=== PATIENT | female | born 1965 | race Caucasian/White ===

== ENCOUNTER → 2016-08-22 | Outpatient (CLI) | payer OTHER ==
--- NOTE | 2016-08-25 08:49 | MM ---
Reason for exam: screening (asymptomatic). Last mammogram was performed 1 year ago. History: Patient is postmenopausal. Family history of breast cancer in grandmother at age 70 and breast cancer in cousin. Benign excisional biopsy of the right breast, 2012. Physical Findings: A clinical breast exam by your physician is recommended on an annual basis and results should be correlated with mammographic findings. MG Screening Mammo w CAD Bilateral CC and MLO view(s) were taken. XCCM view(s) were taken of the right breast. Prior study comparison: August 22, 2015, bilateral MG screening mammo w CAD. September 29, 2014, bilateral MG screening mammo w CAD. September 28, 2013, bilateral MG screening mammo w CAD. The breast tissue is heterogeneously dense. This may lower the sensitivity of mammography. There is no discrete abnormality. ASSESSMENT: Negative, BI-RAD 1 RECOMMENDATION: Routine screening mammogram of both breasts in 1 year.
== END | disposition home or self-care (01) ==
LOC: RADMAMWWP 08:47
PROVIDERS: ATTEND Family Medicine
DX: Z12.31 Encounter for screening mammogram for malignant neoplasm of breast (principal)

== ENCOUNTER → 2017-07-03 | Outpatient (CLI) | payer OTHER ==
[2017-07-03 10:24] LABS: Basophils # (A) 0.1 k/uL (0-0.2); Basophils % (A) 1 %; Eosinophils # (A) 0.2 k/uL (0-0.7); Eosinophils % (A) 3 %; HCT 46.5 % (34.0-46.0); HGB 15.1 gm/dL (11.4-16.0); Lymphocytes # (A) 1.3 k/uL (1.0-4.8); Lymphocytes % (A) 18 %; MCH 31.2 pg (25.0-35.0); MCHC 32.4 g/dL (31.0-37.0); MCV 96.1 fL (80.0-100.0); Mean Platelet Volume 7.9; Monocytes # (A) 0.3 k/uL (0-1.0); Monocytes % (A) 4 %; Neutrophils # (A) 5.3 k/uL (1.3-7.7); Neutrophils % (A) 73 %; Platelet Count 245 k/uL (150-450); RBC 4.84 m/uL (3.80-5.40); RDW 13.2 % (11.5-15.5); WBC 7.2 k/uL (3.8-10.6)
[2017-07-03 10:41] LABS: ALT 17 U/L (9-52); AST 15 U/L (14-36); Albumin 4.2 g/dL (3.5-5.0); Alkaline Phosphatase 52 U/L (38-126); Anion Gap 10 mmol/L; Blood Urea Nitrogen 21 mg/dL (7-17); Calcium 9.8 mg/dL (8.4-10.2); Carbon Dioxide 28 mmol/L (22-30); Chloride 106 mmol/L (98-107); Cholesterol 186 mg/dL (<200); Glucose 120 mg/dL (74-99); HDL Cholesterol 51 mg/dL (40-60); LDL Cholesterol,Calculated 124 mg/dL (0-99); Potassium 5.1 mmol/L (3.5-5.1); Sodium 144 mmol/L (137-145); Total Bilirubin 0.9 mg/dL (0.2-1.3); Total Protein 6.8 g/dL (6.3-8.2); Triglycerides 57 mg/dL (<150)
== END | disposition home or self-care (01) ==
LOC: LABWHC1 09:44
PROVIDERS: ATTEND Family Medicine
DX: Z00.01 Encounter for general adult medical examination with abnormal findings (principal); K62.5 Hemorrhage of anus and rectum; E11.9 Type 2 diabetes mellitus without complications
CPT/HCPCS: 36415; 80053; 80061; 82306; 83001; 83002; 84443; 85025

== ENCOUNTER → 2017-11-04 | Outpatient (CLI) | payer OTHER ==
[2017-11-04 08:31] LABS: Albumin 4.2 g/dL (3.5-5.0); Bilirubin, Delta 0.2 mg/dL (0.0-0.2); Bilirubin,Unconjugated 0.6 mg/dL (0.0-1.1); Total Bilirubin 0.8 mg/dL (0.2-1.3); Total Protein 6.3 g/dL (6.3-8.2)
--- NOTE | 2017-11-05 11:49 | MM ---
Reason for exam: screening (asymptomatic). Last mammogram was performed 1 year and 2 months ago. History: Patient is postmenopausal. Family history of breast cancer in grandmother at age 70 and breast cancer in cousin. Benign excisional biopsy of the right breast, 2012. Physical Findings: A clinical breast exam by your physician is recommended on an annual basis and results should be correlated with mammographic findings. MG Screening Mammo w CAD Bilateral CC and MLO view(s) were taken. Prior study comparison: August 22, 2016, bilateral MG screening mammo w CAD. August 22, 2015, bilateral MG screening mammo w CAD. The breast tissue is heterogeneously dense. This may lower the sensitivity of mammography. Focal asymmetry right upper outer quadrant anteriorly is more defined but may represent summation shadow. ASSESSMENT: Incomplete: need additional imaging evaluation, BI-RAD 0 RECOMMENDATION: Special view mammogram of the right breast. If lesion persists on supplemental views, image directed ultrasound is recommended. [facility] will attempt to contact patient to return for supplemental views and ultrasound if indicated.
== END | disposition home or self-care (01) ==
LOC: RADMAMWWP 06:57
PROVIDERS: ATTEND Family Medicine
DX: Z12.31 Encounter for screening mammogram for malignant neoplasm of breast (principal)
CPT/HCPCS: 36415; 77067; 80061; 80076

== ENCOUNTER → 2017-11-17 | Outpatient (CLI) | payer OTHER ==
--- NOTE | 2017-11-17 11:48 | MM ---
Reason for exam: additional evaluation requested from abnormal screening. Last mammogram was performed less than 1 month ago. History: Patient is postmenopausal. Family history of breast cancer in grandmother at age 70 and breast cancer in cousin. Benign excisional biopsy of the right breast, 2012. Physical Findings: Nurse did not find any significant physical abnormalities on exam. MG Work Up Mamm w CAD RT Spot compression CC, spot compression MLO, and ML view(s) were taken of the right breast. Prior study comparison: November 04, 2017, bilateral MG screening mammo w CAD. August 22, 2016, bilateral MG screening mammo w CAD. The breast tissue is heterogeneously dense. This may lower the sensitivity of mammography. No suspicious abnormality. Patient notes a 30 pound weight loss. The previously seen focal asymmetry improves on additional views and appears as fibroglandular tissue. These results were verbally communicated with the patient and result sheet given to the patient on 11/17/17. ASSESSMENT: Negative, BI-RAD 1 RECOMMENDATION: Return to routine screening mammogram schedule for both breasts.
== END | disposition home or self-care (01) ==
LOC: RADMAMWWP 08:17
PROVIDERS: ATTEND Family Medicine
DX: R92.8 Other abnormal and inconclusive findings on diagnostic imaging of breast (principal)
CPT/HCPCS: 77065

== ENCOUNTER → 2018-03-12 | Outpatient (CLI) | payer OTHER ==
--- NOTE | 2018-03-12 08:22 | CT ---
EXAMINATION TYPE: CT sinus wo con DATE OF EXAM: 03/12/2018 COMPARISON: 05/21/2015 HISTORY: Atypical facial pain, sinus congestion CT DLP: 558.[address] of the paranasal sinuses was performed in the axial and coronal planes. Bone and soft tissue settings are submitted. The paranasal sinuses demonstrate normal aeration and development. Mucosal thickening of the several left-sided ethmoid air cells. Remaining paranasal sinuses are well- aerated at this time. The osteal meatal units are patent bilaterally. The nasal septum is deviated from left to right. No bony destructive changes are seen within the field of view. IMPRESSION: 1. The ethmoidal chronic sinusitis. 2. Nasal septal deviation.
== END ==
LOC: RADCTMAIN 07:44
PROVIDERS: ATTEND Otolaryngology Plastic Surgery within the Head & Neck
DX: J32.2 Chronic ethmoidal sinusitis (principal); J34.2 Deviated nasal septum
CPT/HCPCS: 70486

== ENCOUNTER 2018-05-16 18:49 | Observation (INO) | payer OTHER ==
[2018-05-16] MEDS ORDERED: ASPIRIN 81 MG PO STA (19:18)
[2018-05-16] MEDS: NITROGLYCERIN SL TABS 0.4 MG TAB SUBLINGUAL STA ×3 (19:31→19:56)
--- NOTE | 2018-05-16 19:46 | ED ---
General Adult HPI - General Chief complaint: Chest Pain Stated complaint: Chest Pain Time Seen by Provider: 05/16/18 19:00 Source: patient, RN notes reviewed Mode of arrival: wheelchair Limitations: no limitations - History of Present Illness Initial comments: Chief complaint and history of present illness this is a 52-year-old female brought emergency room by some because chest pain. Patient reports she was shoveling snow. She developed a chest heaviness or discomfort. For the past week she's been using a heating pad because of discomfort to her right scapular region. She states she was mildly sweaty because she was shoveling. The cold air made her feel better. Otherwise no radiation of pain. Mild nausea but no vomiting. Patient reports discomfort was never worse than a 5 after getting to emergency room and was lowered to a 2. Patient states that she has had cardiac workup in the past because of left-sided chest discomfort and no apparent cardiac problems are found other than a right bundle branch block on EKG. - Related Data Home Medications Medication Instructions Recorded Confirmed Aspirin [Adult Low Dose Aspirin EC] 81 mg PO DAILY 05/16/18 05/16/18 Loratadine [Claritin] 10 mg PO DAILY 05/16/18 05/16/18 Montelukast [Singulair] 10 mg PO DAILY 05/16/18 05/16/18 Allergies Allergy/AdvReac Type Severity Reaction Status Date / Time codeine Allergy Rash/Hives Verified 05/16/18 19:50 Review of Systems ROS Statement: Those systems with pertinent positive or pertinent negative responses have been documented in the HPI. Review of systems. No headache or visual acuity changes no neck pain. Patient reports that she has discomfort through the chest but without any significant radiation. Mild nausea no vomiting. No diaphoresis. Discomfort is not reproducible. Discomfort or pressure is less now than it was while shoveling. This problem started approximately 1 hour prior to coming emergency room. All systems reviewed. Past medical problems significant for diet-controlled diabetes mellitus, she reports having had chest discomfort that sounds like costochondritis after full workup for cardiac pathology. 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 She's had MRSA infections in the right shoulder and left axilla. Surgeries include bladder suspension, cholecystectomy, vein surgery in the legs. Family history breast cancers. She has ALLERGIES to codeine which causes nausea. She does smoke she was encouraged to stop. She was advised to talk to her family doctor about ways stopping. Alcohol socially. ROS Other: All systems not noted in ROS Statement are negative. Past Medical History Past Medical History: Deep Vein Thrombosis (DVT) History of Any Multi-Drug Resistant Organisms: None Reported Past Surgical History: Bladder Surgery, Cholecystectomy, Hernia Repair Additional Past Surgical History / Comment(s): vein surgery on legs Past Psychological History: No Psychological Hx Reported Smoking Status: Current every day smoker Past Alcohol Use History: Occasional Past Drug Use History: None Reported General Exam Limitations: no limitations Course Vital Signs 05/16/18 05/16/18 05/16/18 18:52 19:31 19:44 Temperature 98.2 F Pulse Rate 91 72 77 Respiratory 16 20 18 Rate Blood Pressure 119/87 138/91 117/85 O2 Sat by Pulse 98 100 100 Oximetry 05/16/18 05/16/18 19:53 20:00 Temperature 98 F Pulse Rate 81 80 Respiratory 18 16 Rate Blood Pressure 118/78 105/94 O2 Sat by Pulse 100 100 Oximetry EKG Findings - EKG Comments: EKG Findings:: EKG was done and reviewed at 1901 showing normal sinus rhythm with left axis deviation and right bundle branch block and possible some lateral ischemic changes as compared to an EKG that abdomen done on 11/11/2011. Medical Decision Making - Medical Decision Making Medical decision making; this is a 60-year-old female reports she is having chest pressure discomfort while shoveling snow. EKG showed some possible lateral ischemic changes compared to an EKG she had done so in 2011. Patient was given sublingual nitro and she reports the discomfort went from a 6 to a 1. Labs show white count of 6.5 hemoglobin 13 hematocrit of 42 with a potassium 4.5. BUN 19 creatinine 0.75 and GFR greater than 90. Glucose 1 week. Amylase lipase within normal limits. D-dimer 0.27. Amylase lipase normal limits. Troponin less than 0.012. Chest x-ray is done AP and lateral view and reviewed by radiologist his impression is heart mediastinum are normal. Lungs are clear. Diaphragm is normal. Bony thorax appears normal. Impression normal chest. No change. As read by Dr. Ortega The patient states that she was having back pain all week. She also reports that when her chest pressure gets slightly worse the back pain gets slightly worse. The patient will have a CT of the chest to rule out dissecting aortic aneurysm CT of the chest and abdomen done with contrast for evaluation of PE or dissecting aortic aneurysm. The final impression is ; there is no evidence of pulmonary embolism, no evidence of aortic dissection as read by Dr. Ortega Eyes discussed the case with on-call deputy building guard Dr. Dr. Fofana. Patient will be heparinized she'll follow in hospital. The patient be admitted to her attending Dr. Erickson., Or whoever is on-call for him. - Lab Data Result diagrams: 05/16/18 19:24 05/16/18 19:24 Lab Results 05/16/18 05/16/18 05/16/18 Range/Units 19:24 19:24 19:24 WBC 6.5 (3.8-10.6) k/uL RBC 4.37 (3.80-5.40) m/uL Hgb 13.6 (11.4-16.0) gm/dL Hct 42.8 (34.0-46.0) % MCV 97.9 (80.0-100.0) fL MCH 31.1 (25.0-35.0) pg MCHC 31.8 (31.0-37.0) g/dL RDW 13.0 (11.5-15.5) % Plt Count 242 (150-450) k/uL Neutrophils % 57 % Lymphocytes % 30 % Monocytes % 4 % Eosinophils % 5 % Basophils % 1 % Neutrophils # 3.7 (1.3-7.7) k/uL Lymphocytes # 2.0 (1.0-4.8) k/uL Monocytes # 0.3 (0-1.0) k/uL Eosinophils # 0.3 (0-0.7) k/uL Basophils # 0.1 (0-0.2) k/uL PT (9.0-12.0) sec INR (<1.2) APTT (22.0-30.0) sec D-Dimer (<0.60) mg/L FEU Sodium 142 (137-145) mmol/L Potassium 4.5 (3.5-5.1) mmol/L Chloride 109 H (98-107) mmol/L Carbon Dioxide 27 (22-30) mmol/L Anion Gap 6 mmol/L BUN 19 H (7-17) mg/dL Creatinine 0.75 (0.52-1.04) mg/dL Est GFR (CKD-EPI)AfAm >90 (>60 ml/min/1.73 sqM) Est GFR (CKD-EPI)NonAf >90 (>60 ml/min/1.73 sqM) Glucose 108 H (74-99) mg/dL Calcium 9.7 (8.4-10.2) mg/dL Magnesium 1.9 (1.6-2.3) mg/dL Total Bilirubin 0.5 (0.2-1.3) mg/dL AST 13 L (14-36) U/L ALT 19 (9-52) U/L Alkaline Phosphatase 43 (38-126) U/L Total Creatine Kinase 43 (30-135) U/L CK-MB (CK-2) <0.2 (0.0-2.4) ng/mL CK-MB (CK-2) Rel Index Troponin I <0.012 (0.000-0.034) ng/mL Total Protein 6.4 (6.3-8.2) g/dL Albumin 3.9 (3.5-5.0) g/dL Amylase 54 (30-110) U/L Lipase 153 (23-300) U/L 05/16/18 Range/Units 19:24 WBC (3.8-10.6) k/uL RBC (3.80-5.40) m/uL Hgb (11.4-16.0) gm/dL Hct (34.0-46.0) % MCV (80.0-100.0) fL MCH (25.0-35.0) pg MCHC (31.0-37.0) g/dL RDW (11.5-15.5) % Plt Count (150-450) k/uL Neutrophils % % Lymphocytes % % Monocytes % % Eosinophils % % Basophils % % Neutrophils # (1.3-7.7) k/uL Lymphocytes # (1.0-4.8) k/uL Monocytes # (0-1.0) k/uL Eosinophils # (0-0.7) k/uL Basophils # (0-0.2) k/uL PT 10.1 (9.0-12.0) sec INR 0.9 (<1.2) APTT 24.1 (22.0-30.0) sec D-Dimer 0.27 (<0.60) mg/L FEU Sodium (137-145) mmol/L Potassium (3.5-5.1) mmol/L Chloride (98-107) mmol/L Carbon Dioxide (22-30) mmol/L Anion Gap mmol/L BUN (7-17) mg/dL Creatinine (0.52-1.04) mg/dL Est GFR (CKD-EPI)AfAm (>60 ml/min/1.73 sqM) Est GFR (CKD-EPI)NonAf (>60 ml/min/1.73 sqM) Glucose (74-99) mg/dL Calcium (8.4-10.2) mg/dL Magnesium (1.6-2.3) mg/dL Total Bilirubin (0.2-1.3) mg/dL AST (14-36) U/L ALT (9-52) U/L Alkaline Phosphatase (38-126) U/L Total Creatine Kinase (30-135) U/L CK-MB (CK-2) (0.0-2.4) ng/mL CK-MB (CK-2) Rel Index Troponin I (0.000-0.034) ng/mL Total Protein (6.3-8.2) g/dL Albumin (3.5-5.0) g/dL Amylase (30-110) U/L Lipase (23-300) U/L Disposition Clinical Impression: Unstable angina Disposition: ADMITTED IP TO THIS [facility] Condition: Serious Is patient prescribed a controlled substance at d/c from ED?: No Referrals: Wili Erickson MD [Primary Care Provider] - 1-2 days
--- NOTE | 2018-05-16 19:47 | XR ---
EXAMINATION TYPE: XR chest 2V DATE OF EXAM: 05/16/2018 COMPARISON: 11/11/2011 HISTORY: Chest pain TECHNIQUE: Frontal and lateral views of the chest are obtained. FINDINGS: Heart and mediastinum are normal. Lungs are clear. Diaphragm is normal. Bony thorax appear s normal. IMPRESSION: Normal chest. No change.
[2018-05-16 19:48] LABS: Basophils # (A) 0.1 k/uL (0-0.2); Basophils % (A) 1 %; Eosinophils # (A) 0.3 k/uL (0-0.7); Eosinophils % (A) 5 %; HCT 42.8 % (34.0-46.0); HGB 13.6 gm/dL (11.4-16.0); Lymphocytes % (A) 30 %; MCH 31.1 pg (25.0-35.0); MCHC 31.8 g/dL (31.0-37.0); MCV 97.9 fL (80.0-100.0); Mean Platelet Volume 6.7; Monocytes # (A) 0.3 k/uL (0-1.0); Monocytes % (A) 4 %; Neutrophils # (A) 3.7 k/uL (1.3-7.7); Neutrophils % (A) 57 %; Platelet Count 242 k/uL (150-450); RBC 4.37 m/uL (3.80-5.40); WBC 6.5 k/uL (3.8-10.6)
[2018-05-16 19:57] LABS: ALT 19 U/L (9-52); AST 13 U/L (14-36); Albumin 3.9 g/dL (3.5-5.0); Alkaline Phosphatase 43 U/L (38-126); Amylase 54 U/L (30-110); Anion Gap 6 mmol/L; Blood Urea Nitrogen 19 mg/dL (7-17); Calcium 9.7 mg/dL (8.4-10.2); Carbon Dioxide 27 mmol/L (22-30); Chloride 109 mmol/L (98-107); Glucose 108 mg/dL (74-99); Lipase 153 U/L (23-300); Magnesium 1.9 mg/dL (1.6-2.3); Potassium 4.5 mmol/L (3.5-5.1); Sodium 142 mmol/L (137-145); Total Bilirubin 0.5 mg/dL (0.2-1.3); Total Protein 6.4 g/dL (6.3-8.2)
[2018-05-16 20:02] LABS: D-Dimer 0.27 mg/L FEU (<0.60); INR 0.9 (<1.2); Partial Thromboplastin Time 24.1 sec (22.0-30.0); Prothrombin Time 10.1 sec (9.0-12.0)
[2018-05-16 20:56] LABS: Creatine Kinase 43 U/L (30-135)
[2018-05-16 21:10] LABS: Creatine Kinase MB <0.2 ng/mL (0.0-2.4); Troponin I <0.012 ng/mL (0.000-0.034)
--- NOTE | 2018-05-16 21:42 | CT ---
CT angiogram of the thoracic and abdominal aorta with runoffs. History back pain. Comparison none. TECHNIQUE: Multiple axial sections were obtained from the mid thorax to the floor the pelvis with no contrast. Axial sections were obtained from the thoracic inlet to the bottom of the feet with intravenous contr ast. The contrast was Isovue 125 mL. FINDINGS: There is normal branching pattern of the great vessels on the aortic arch. Thoracic aorta is intact w ithout evidence of aneurysm or dissection. I see no filling defects in the pulmonary arteries. There is patency of the celiac artery and superior mesenteric artery. Abdominal aorta has normal size. Ther e is patency of the renal arteries and the iliac and femoral arteries. There is patency of the femora l artery bifurcations. There is wide patency of the popliteal and tibial arteries. There is bilateral patency of the tibial artery trifurcations. There is arterial flow at both ankles in the anterior posterior tibial arteries. I see no sign of hem odynamic stenosis. There is no evidence of dissection. There is no evidence of arterial aneurysm. There is no evidence of a pelvic mass. Kidneys show satisfactory contrast opacification. There are re nal cortical cyst on the right side that measure up to 2.5 cm. There are multiple small hepatic cysts . There is no evidence of a splenic mass. There is no pancreatic mass. Bile ducts are not dilated. Th ere are clips from cholecystectomy. The lungs are clear of infiltrate. There is no pleural effusion. There is no pericardial effusion. There is no mediastinal adenopathy. There are no hilar masses. Ther e is mild subsegmental atelectasis at the posterior lung bases. IMPRESSION: Mild bilateral basilar subsegmental atelectasis. Negative CT angiogram of the chest abdomen pelvis wi th runoffs. No evidence of stenosis. No evidence of pulmonary embolism. Renal and hepatic cysts.
[2018-05-16] MEDS ORDERED: HEPARIN SODIUM,PORCINE 5,000 UNIT/ML 1 ML VIAL IV STA (21:50)
[2018-05-16] MEDS ORDERED: HEPARIN SODIUM,PORCINE 5,000 UNIT/ML 1 ML VIAL IV PRN (21:53)
[2018-05-16] MEDS ORDERED: HEPARIN SODIUM,PORCINE 5,000 UNIT/ML 1 ML VIAL IV ONE (21:53)
[2018-05-16] MEDS ORDERED: HEPARIN SOD,PORK IN 0.45% NACL 25,000 UNIT in 0.45% NACL 1 250ML.BAG IV SCH (22:00)
[2018-05-16] MEDS ORDERED: NALOXONE 0.4 MG/ML 1 ML VIAL IV PRN (22:28)
[2018-05-16] MEDS ORDERED: ACETAMINOPHEN TAB 325 MG TAB PO PRN (22:28)
[2018-05-16] MEDS ORDERED: SODIUM CHLORIDE 0.9% 1,000 ML IV SCH (22:30)
[2018-05-17 00:07] VITALS: BMI 27.1
[2018-05-17 02:04] LABS: Creatine Kinase 34 U/L (30-135)
[2018-05-17 02:17] LABS: Creatine Kinase MB <0.2 ng/mL (0.0-2.4); Troponin I <0.012 ng/mL (0.000-0.034)
[2018-05-17 06:45] LABS: Glucose,Whole Blood 102 mg/dL (75-99)
[2018-05-17 06:59] LABS: Basophils # (A) 0.1 k/uL (0-0.2); Basophils % (A) 1 %; Eosinophils # (A) 0.3 k/uL (0-0.7); Eosinophils % (A) 5 %; HGB 12.9 gm/dL (11.4-16.0); Lymphocytes # (A) 3.1 k/uL (1.0-4.8); Lymphocytes % (A) 48 %; MCH 32.2 pg (25.0-35.0); MCV 97.6 fL (80.0-100.0); Mean Platelet Volume 7.3; Monocytes # (A) 0.3 k/uL (0-1.0); Monocytes % (A) 5 %; Neutrophils # (A) 2.5 k/uL (1.3-7.7); Neutrophils % (A) 39 %; Platelet Count 214 k/uL (150-450); WBC 6.5 k/uL (3.8-10.6)
[2018-05-17 07:22] LABS: Creatine Kinase 32 U/L (30-135)
[2018-05-17 07:35] LABS: Creatine Kinase MB <0.2 ng/mL (0.0-2.4); Troponin I <0.012 ng/mL (0.000-0.034)
[2018-05-17 08:48] LABS: Cholesterol 140 mg/dL (<200); HDL Cholesterol 42 mg/dL (40-60); LDL Cholesterol,Calculated 86 mg/dL (0-99); Triglycerides 58 mg/dL (<150)
[2018-05-17] MEDS ORDERED: MONTELUKAST 10 MG TAB PO SCH (09:00)
[2018-05-17] MEDS ORDERED: FAMOTIDINE 20 MG TAB PO SCH (09:00)
--- NOTE | 2018-05-17 10:39 | P.CRDCN ---
History of Present Illness History of present illness: This is a pleasant 52 [place] female past medical history significant for diabetes mellitus that is diet controlled, dyslipidemia that is diet controlled and chronic nicotine dependence. She denies history of coronary artery disease. She has had a stress test early in the 1999 which she states was normal. We have been asked to see her in consultation secondary to symptoms of chest pain. She states she has had a pain in the upper middle back described as an ache for a week. After shoveling yesterday at 2 houses she felt tight in the chest in the mid-sternal region. Persisted and got worse with associated nausea. Symptoms lasted approximately an hour. Subsided after given 3 nitroglycerin in the ED. she has been chest pain-free since admission. She denies associated shortness of breath, dizziness or palpitations. EKG reveals right bundle branch block pattern. Chest x-ray is negative for an acute cardiopulmonary process. Laboratory data reviewed, WBC 6.5, hemoglobin 12.9, platelets 214, sodium 142, potassium 4.5, creatinine 0.75, magnesium 1.9, d-dimer 0.27, cardiac enzymes negative 3, LDL 86 and HDL 42. CTA chest and aorta with run-off reveals mild bilateral basilar atelectasis, no evidence of stenosis and no evidence of pulmonary embolism. At the time of my exam: CONSTITUTIONAL: Denies fever. Denies chills. EYES: Denies blurred vision. Denies vision changes. Denies eye pain. EARS, NOSE, MOUTH & THROAT: Denies headache. Denies sore throat. Denies ear pain. CARDIOVASCULAR: Denies chest pain. Denies shortness of breath. Denies orthopnea. Denies PND. Denies palpitations. RESPIRATORY: Denies cough. GASTROINTESTINAL: Denies abdominal pain. Denies diarrhea. Denies constipation. Denies nausea. Denies vomiting. MUSCULOSKELETAL: Denies myalgias. INTEGUMENTARY: Denies pruitis. Denies rash. NEUROLOGIC: Denies numbness. Denies tingling. Denies weakness. PSYCHIATRIC: Denies anxiety. Denies depression. ENDOCRINE: Denies fatigue. Denies weight change. Denies polydipsia. Denies polyurina. GENITOURINARY: Denies burning, hematuria or urgency with micturation. HEMATOLOGIC: Denies history of anemia. Denies bleeding. Blood pressure 116/70 heart rate 57 afebrile maintaining oxygen saturation on room air GENERAL: This is a 52-year-old female in no apparent distress at the time of my examination. HEENT: Head is atraumatic, normocephalic. Pupils are equal, round. Sclerae anicteric. Conjunctivae are clear. Mucous membranes of the mouth are moist. Neck is supple. There is no jugular venous distention. No carotid bruit is heard. LUNGS: Clear to auscultation no wheezes, rales or rhonchi. No chest wall tenderness is noted on palpation or with deep breathing. HEART: Regular rate and rhythm without murmurs, rubs or gallops. S1 and S2 heard. ABDOMEN: Soft, nontender. Bowel sounds are heard. No organomegaly noted. EXTREMITIES: No evidence of peripheral edema and no calf tenderness noted. VASCULAR: Radial and dorsalis pedis pulses palpated, no evidence of clubbing. NEUROLOGIC: Patient is awake, alert and oriented x3. ASSESSMENT Chest pain, atypical. An acute coronary event has ruled out with no EKG evidence of ischemia negative cardiac enzymes. Dyslipidemia, diet controlled. Diabetes mellitus, diet controlled. Stopped metformin 08/2017 Chronic nicotine dependence PLAN An acute coronary event has been ruled out with no EKG evidence of ischemia and negative cardiac enzymes. Obtain 2D echocardiogram and doppler study to assess cardiac structure and function. Perform exercise stress echocardiogram to assess for stress induced ischemic changes. Check lipid profile and hgb A1C. Smoking cessation recommended. If stress test is normal she is stable from a cardiac perspective. Follow up with Dr. Ramirez upon discharge. Nurse Practitioner note has been reviewed, I agree with a documented findings and plan of care. Patient was seen and examined. Past Medical History Past Medical History: Diabetes Mellitus, Deep Vein Thrombosis (DVT), Hyperlipidemia, Hypertension Additional Past Medical History / Comment(s): diet controlled DM, right BBB, allergies History of Any Multi-Drug Resistant Organisms: MRSA Date of last positivie culture/infection: 12/29/2014 MDRO Source:: right shoulder Past Surgical History: Bladder Surgery, Cholecystectomy, Hernia Repair, Uterine Ablation Additional Past Surgical History / Comment(s): bladder suspension with peritenium correction, vein surgery on legs, hemmorhoid surg, left axilla surgery for MRSA Past Anesthesia/Blood Transfusion Reactions: No Reported Reaction Past Psychological History: No Psychological Hx Reported Smoking Status: Current every day smoker Past Alcohol Use History: Occasional Past Drug Use History: None Reported - Past Family History Father Additional Family Medical History / Comment(s): passed at 47 with enlarged heart secondary to drug abuse Medications and Allergies Home Medications Medication Instructions Recorded Confirmed Type Aspirin [Adult Low Dose Aspirin EC] 81 mg PO DAILY 05/16/18 05/16/18 History Loratadine [Claritin] 10 mg PO DAILY 05/16/18 05/16/18 History Montelukast [Singulair] 10 mg PO DAILY 05/16/18 05/16/18 History Allergies Allergy/AdvReac Type Severity Reaction Status Date / Time codeine Allergy Rash/Hives Verified 05/16/18 19:50 Physical Exam Vitals: Vital Signs Temp Pulse Pulse Resp BP BP BP 05/17/18 07:00 98.3 F 57 L 16 116/70 05/17/18 03:51 98.4 F 61 18 100/60 05/17/18 03:30 18 05/17/18 00:00 98.3 F 69 18 131/86 05/16/18 23:36 97 F L 66 18 112/65 05/16/18 22:00 76 20 115/81 05/16/18 20:00 98 F 80 16 105/94 05/16/18 19:53 81 18 118/78 05/16/18 19:44 77 18 117/85 05/16/18 19:31 72 20 138/91 05/16/18 18:52 98.2 F 91 16 119/87 Pulse Ox 05/17/18 07:00 94 L 05/17/18 03:51 96 05/17/18 03:30 05/17/18 00:00 100 05/16/18 23:36 97 05/16/18 22:00 97 05/16/18 20:00 100 05/16/18 19:53 100 05/16/18 19:44 100 05/16/18 19:31 100 05/16/18 18:52 98 Intake and Output 05/16/18 05/17/18 05/17/18 22:59 06:59 14:59 Other: Voiding Method Toilet # Voids 2 Weight 78.471 kg 78.4 kg Results 05/17/18 06:33 05/16/18 19:24 Cardiac Enzymes 05/16/18 05/16/18 05/17/18 Range/Units 19:24 19:24 01:16 AST 13 L (14-36) U/L CK-MB (CK-2) <0.2 <0.2 (0.0-2.4) ng/mL Troponin I <0.012 <0.012 (0.000-0.034) ng/mL 05/17/18 Range/Units 06:33 AST (14-36) U/L CK-MB (CK-2) <0.2 (0.0-2.4) ng/mL Troponin I <0.012 (0.000-0.034) ng/mL Coagulation 05/16/18 05/17/18 Range/Units 19:24 06:33 PT 10.1 (9.0-12.0) sec APTT 24.1 48.9 H (22.0-30.0) sec CBC 05/16/18 05/17/18 Range/Units 19:24 06:33 WBC 6.5 6.5 (3.8-10.6) k/uL RBC 4.37 4.00 (3.80-5.40) m/uL Hgb 13.6 12.9 (11.4-16.0) gm/dL Hct 42.8 39.0 (34.0-46.0) % Plt Count 242 214 (150-450) k/uL Comprehensive Metabolic Panel 05/16/18 Range/Units 19:24 Sodium 142 (137-145) mmol/L Potassium 4.5 (3.5-5.1) mmol/L Chloride 109 H (98-107) mmol/L Carbon Dioxide 27 (22-30) mmol/L BUN 19 H (7-17) mg/dL Creatinine 0.75 (0.52-1.04) mg/dL Glucose 108 H (74-99) mg/dL Calcium 9.7 (8.4-10.2) mg/dL AST 13 L (14-36) U/L ALT 19 (9-52) U/L Alkaline Phosphatase 43 (38-126) U/L Total Protein 6.4 (6.3-8.2) g/dL Albumin 3.9 (3.5-5.0) g/dL Current Medications Generic Name Dose Route Start Last Admin Trade Name Freq PRN Reason Stop Dose Admin Acetaminophen 650 mg 05/16/18 22:28 Tylenol Tab PO Q6HR PRN Mild Pain or Fever > 100.5 Famotidine 20 mg 05/17/18 09:00 Pepcid PO BID [facility] Heparin Sodium (Porcine) 0 unit 05/16/18 21:53 Heparin IV PER PROTOCOL PRN Low PTT Protocol Heparin Sodium/Sodium Chloride 250 mls @ 9.41 mls/hr 05/16/18 22:00 05/16/18 22:40 25,000 unit/ Sodium Chloride IV 12 units/kg/hr .Q24H MIKKI 9.41 mls/hr Administration Protocol 12 UNITS/KG/HR Sodium Chloride 1,000 mls @ 20 mls/hr 05/16/18 22:30 Saline 0.9% IV .Q24H [facility] Montelukast Sodium 10 mg 05/17/18 09:00 Singulair PO DAILY [facility] Naloxone HCl 0.2 mg 05/16/18 22:28 Narcan IV Q2M PRN Opioid Reversal Intake and Output 05/16/18 05/17/18 05/17/18 22:59 06:59 14:59 Other: Voiding Method Toilet # Voids 2 Weight 78.471 kg 78.4 kg 05/17/18 06:33 05/16/18 19:24
[2018-05-17 11:43] VITALS: RESP 18; TEMP 98.5
[2018-05-17 12:28] LABS: Glucose,Whole Blood 110 mg/dL (75-99)
[2018-05-17 16:26] VITALS: BP 135/91; PULSE 76
[2018-05-17 16:57] LABS: Glucose,Whole Blood 97 mg/dL (75-99)
--- NOTE | 2018-05-17 17:26 | P.HPIM ---
History of Present Illness H&P Date: 05/17/18 Chief Complaint: Chest pain This is a 52-year-old female who presented to the emergency room with chest pain. Patient reports she was shoveling snow and developed chest heaviness. For the past week she's been using heating pad because discomfort right scapular region. Patient states she was mildly sweaty because she was shoveling. Mild nausea but no vomiting. Patient does have a known standing history of right bundle branch block on EKG Review of Systems Constitutional: Reports as per HPI Ears, nose, mouth and throat: Reports as per HPI Cardiovascular: Reports chest pain Respiratory: Reports as per HPI Gastrointestinal: Reports as per HPI Genitourinary: Reports as per HPI Menstruation: Reports as per HPI Musculoskeletal: Reports as per HPI Integumentary: Reports as per HPI Neurological: Reports as per HPI Past Medical History Past Medical History: Diabetes Mellitus, Deep Vein Thrombosis (DVT), Hyperlipidemia, Hypertension Additional Past Medical History / Comment(s): diet controlled DM, right BBB, allergies History of Any Multi-Drug Resistant Organisms: MRSA Date of last positivie culture/infection: 12/29/2014 MDRO Source:: right shoulder Past Surgical History: Bladder Surgery, Cholecystectomy, Hernia Repair, Uterine Ablation Additional Past Surgical History / Comment(s): bladder suspension with peritenium correction, vein surgery on legs, hemmorhoid surg, left axilla surgery for MRSA Past Anesthesia/Blood Transfusion Reactions: No Reported Reaction Past Psychological History: No Psychological Hx Reported Smoking Status: Current every day smoker Past Alcohol Use History: Occasional Past Drug Use History: None Reported - Past Family History Father Additional Family Medical History / Comment(s): passed at 47 with enlarged heart secondary to drug abuse Medications and Allergies Home Medications Medication Instructions Recorded Confirmed Type Aspirin [Adult Low Dose Aspirin EC] 81 mg PO DAILY 05/16/18 05/16/18 History Loratadine [Claritin] 10 mg PO DAILY 05/16/18 05/16/18 History Montelukast [Singulair] 10 mg PO DAILY 05/16/18 05/16/18 History Allergies Allergy/AdvReac Type Severity Reaction Status Date / Time codeine Allergy Rash/Hives Verified 05/16/18 19:50 Physical Exam Osteopathic Statement: *. No significant issues noted on an osteopathic structural exam other than those noted in the History and Physical/Consult. Vitals: Vital Signs Temp Pulse Pulse Resp BP BP BP 05/17/18 16:00 98.5 F 76 18 135/91 05/17/18 11:30 98.5 F 64 18 105/63 05/17/18 07:00 98.3 F 57 L 16 116/70 05/17/18 03:51 98.4 F 61 18 100/60 05/17/18 03:30 18 05/17/18 00:00 98.3 F 69 18 131/86 05/16/18 23:36 97 F L 66 18 112/65 05/16/18 22:00 76 20 115/81 05/16/18 20:00 98 F 80 16 105/94 05/16/18 19:53 81 18 118/78 05/16/18 19:44 77 18 117/85 05/16/18 19:31 72 20 138/91 05/16/18 18:52 98.2 F 91 16 119/87 Pulse Ox 05/17/18 16:00 95 05/17/18 11:30 95 05/17/18 07:00 94 L 05/17/18 03:51 96 05/17/18 03:30 05/17/18 00:00 100 05/16/18 23:36 97 05/16/18 22:00 97 05/16/18 20:00 100 05/16/18 19:53 100 05/16/18 19:44 100 05/16/18 19:31 100 05/16/18 18:52 98 Intake and Output 05/17/18 05/17/18 05/17/18 06:59 14:59 22:59 Intake Total 240 Balance 240 Intake: Oral 240 Other: Voiding Method Toilet Toilet Toilet # Voids 2 1 Weight 78.4 kg General: [Patient awake, alert and oriented times 3. Patient in no acute distress.] HEENT: [PERRL. EOMI. No pharyngeal erythema or exudate.] Neck: [No adenopathy.] Cardiac: [Heart regular in rate and rhythm. No S3. No S4. No clicks, rubs. No murmur.] Lungs: [Clear to auscultation bilaterally.] Abdomen: [No mass. No organomegaly. Bowel sounds presnt and normoactive in all 4 quadrants.] Extremes: [No edema no cyanosis no claudication normal pulses] : Normal female genitalia Musculoskeletal: [No joint erythema, edema or tenderness.] Skin: [No rash.] Neurologic: [No lateralizing deficits. CN II - XII grossly intact.] Lymphatic: [No adenopathy.] Results CBC & Chem 7: 05/17/18 06:33 05/16/18 19:24 Labs: Abnormal Lab Results - Last 24 Hours (Table) 05/16/18 05/17/18 05/17/18 Range/Units 19:24 06:33 06:42 APTT 48.9 H (22.0-30.0) sec Chloride 109 H (98-107) mmol/L BUN 19 H (7-17) mg/dL Glucose 108 H (74-99) mg/dL POC Glucose (mg/dL) 102 H (75-99) mg/dL AST 13 L (14-36) U/L 05/17/18 Range/Units 12:27 APTT (22.0-30.0) sec Chloride (98-107) mmol/L BUN (7-17) mg/dL Glucose (74-99) mg/dL POC Glucose (mg/dL) 110 H (75-99) mg/dL AST (14-36) U/L Thrombosis Risk Factor Assmnt - Choose All That Apply Each Factor Represents 1 point: Age 41-60 years, Obesity (BMI >25) Each Risk Factor Represents 3 Points: History of DVT/PE Thrombosis Risk Factor Assessment Total Risk Factor Score: 5 Thrombosis Risk Factor Assessment Level: High Risk Assessment and Plan (1) Chest pain Current Visit: Yes Status: Acute Code(s): R07.9 - CHEST PAIN, UNSPECIFIED SNOMED Code(s): 73773794 (2) Right bundle branch block Current Visit: Yes Status: Acute Code(s): I45.10 - UNSPECIFIED RIGHT BUNDLE- BRANCH BLOCK SNOMED Code(s): 52424380 Plan: Stress echo unremarkable Troponins 1 and 2 unremarkable Right bundle branch block by history Chest pain resolved Time with Patient: Greater than 30
--- NOTE | 2018-05-17 17:37 | P.DS ---
Providers Date of admission: 05/16/18 22:23 Attending physician: Wili Erickson Consults: 05/16/18 22:28 Consult Physician Stat Consulting Provider: Roland Fofana Consult Reason/Comments: Unstable angina Do you want consulting provider notified?: Already Contacted Primary care physician: Wili Erickson - Discharge Diagnosis(es) (1) Chest pain Current Visit: Yes Status: Acute (2) Right bundle branch block Current Visit: Yes Status: Acute Hospital Course: General: [Patient awake, alert and oriented times 3. Patient in no acute distress.] HEENT: [PERRL. EOMI. No pharyngeal erythema or exudate.] Neck: [No adenopathy.] Cardiac: [Heart regular in rate and rhythm. No S3. No S4. No clicks, rubs. No murmur.] Lungs: [Clear to auscultation bilaterally.] Abdomen: [No mass. No organomegaly. Bowel sounds presnt and normoactive in all 4 quadrants.] Extremes: [No edema no cyanosis no claudication normal pulses] : Normal female genitalia Musculoskeletal: [No joint erythema, edema or tenderness.] Skin: [No rash.] Neurologic: [No lateralizing deficits. CN II - XII grossly intact.] Lymphatic: [No adenopathy.] Pertinent Studies: Stress echo which was essentially unremarkable Troponins 2 essentially unremarkable Patient Condition at Discharge: Good Plan - Discharge Summary New Discharge Prescriptions: No Action Montelukast [Singulair] 10 mg PO DAILY Loratadine [Claritin] 10 mg PO DAILY Aspirin [Adult Low Dose Aspirin EC] 81 mg PO DAILY Discharge Medication List Aspirin [Adult Low Dose Aspirin EC] 81 mg PO DAILY 05/16/18 [History] Loratadine [Claritin] 10 mg PO DAILY 05/16/18 [History] Montelukast [Singulair] 10 mg PO DAILY 05/16/18 [History] Follow up Appointment(s)/Referral(s): Sarkis Ramirez MD [STAFF PHYSICIAN] - 2 Weeks Wili Erickson MD [Primary Care Provider] - 1-2 days
[2018-05-17 18:18] LABS: Hemoglobin A1C 6.1 % (4.0-6.0)
--- NOTE | 2018-05-18 10:48 | ECHOS ---
Stress Test Note Stress Test Results/Findings: Exam Performed: stress echo exercise Exam Date: 05/17/18 Reason for Exam: CHEST PAIN Height: 5 ft 7 in Weight: 78.4 kg Protocol: ANTONI Stage: 4 Duration of Exercise: 9:30 Resting Heart Rate: 72 Resting Blood Pressure: 123/86 Maximum Achieved Heart Rate: 154 Maximum Achieved Blood Pressure: 154/91 85% PMHR: 145 100% PMHR: 170 METS: 11.1 Technologist Comment: Stress Test Results/Findings: Baseline heart rate 72 beats a minute, Baseline blood pressure 123/86. His mercury Baseline twelve-lead ECG shows sinus rhythm with a right bundle branch block pattern with secondary ST-T abnormalities Present 2-D echo showed normal LV systolic function with a single wall motion abnormalities Patient exercised on a Antoni protocol for 9 minutes 30 seconds achieving a peak heart rate of 154 beats a minute Normal blood pressure response to exercise Baseline 2-D echo images showed normal LV size and systolic function without any segmental wall motion abnormalities At peak exercise there was excellent augmentation of overall LV contractility without development of any wall motion abnormalities @Recovery regional global LV systolic function within normal Impression Baseline twelve-lead ECG shows a right bundle branch block pattern Good exercise capacity No ECG or echocardiographic evidence for ischemia MTDD
== END 2018-05-17 18:20 | disposition home or self-care (01) ==
LOC: EC 18:49 → 1SOBS 22:23
PROVIDERS: ADMIT Family Medicine; ATTEND Family Medicine
DX: R07.89 Other chest pain (principal); I45.10 Unspecified right bundle-branch block; M54.9 Dorsalgia, unspecified; R11.0 Nausea; I10 Essential (primary) hypertension; J98.11 Atelectasis; E78.5 Hyperlipidemia, unspecified; F17.200 Nicotine dependence, unspecified, uncomplicated; E66.9 Obesity, unspecified; Z68.27 Body mass index [BMI] 27.0-27.9, adult; Z79.82 Long term (current) use of aspirin; Z79.899 Other long term (current) drug therapy; Z88.5 Allergy status to narcotic agent; Z86.718 Personal history of other venous thrombosis and embolism; Z86.14 Personal history of Methicillin resistant Staphylococcus aureus infection; Z90.49 Acquired absence of other specified parts of digestive tract; Z86.39 Personal history of other endocrine, nutritional and metabolic disease; Z82.49 Family history of ischemic heart disease and other diseases of the circulatory system; Z81.3 Family history of other psychoactive substance abuse and dependence
CPT/HCPCS: 96366 ×2; 96376; 96365; 99285; 36415; 93005; 93306; 93351; 85379; 80061; 80053; 82150; 82550 ×2; 82553 ×2; 83690; 83735; 84484 ×2; 85025 ×2; 85610; 85730 ×2; 83036; 71046; 75635; 71275; G0378 ×2; J1644 ×2; Q9967

== ENCOUNTER → 2018-06-07 | Outpatient (CLI) | payer OTHER ==
--- NOTE | 2018-06-07 14:32 | XR ---
EXAMINATION TYPE: XR chest 2V DATE OF EXAM: 06/07/2018 COMPARISON: NONE HISTORY: Shortness of breath TECHNIQUE: Frontal and lateral views of the chest are obtained. FINDINGS: Scattered senescent parenchymal changes noted. Hyperinflation compatible with COPD. No evidence for infiltrate. No evidence for atelectasis. Heart size is stable. Mediastinal structures are stable and grossly unremarkable. No evidence for hilar prominence. Degenerative changes dorsal spine. IMPRESSION: 1. No evidence for acute pulmonary disease.
--- NOTE | 2018-06-07 14:33 | XR ---
EXAMINATION TYPE: XR ribs LT DATE OF EXAM: 06/07/2018 CLINICAL HISTORY: Pain, Fall 2 views of the ribs fail demonstrate evidence for displaced rib fracture or secondary sign of rib fra cture. Visualized lungs are clear. No evidence for pneumothorax. IMPRESSION: No displaced rib fractures seen. ICD 10 NO FRACTURE, INITIAL EVALUATION
== END | disposition home or self-care (01) ==
LOC: RADXRMAIN 13:49
PROVIDERS: ATTEND Family Medicine
DX: R07.82 Intercostal pain (principal); S23.41XA Sprain of ribs, initial encounter
CPT/HCPCS: 71046

== ENCOUNTER → 2018-07-05 | Outpatient (CLI) | payer OTHER ==
--- NOTE | 2018-07-05 10:58 | MM ---
Reason for exam: clinical finding. Last mammogram was performed 8 months ago. History: Family history of breast cancer in grandmother at age 70 and breast cancer in cousin. Benign excisional biopsy of the right breast, 2012. Physical Findings: Nurse Summary: 1cm nodule in the right breast at 10 o'clock (nurse monroe). MG Diagnostic Mammo w CAD WIL Bilateral CC and MLO view(s) were taken. Prior study comparison: November 17, 2017, right breast MG work up mamm w CAD RT. November 04, 2017, bilateral MG screening mammo w CAD. The breast tissue is heterogeneously dense. This may lower the sensitivity of mammography. There is no discrete abnormality. These results were verbally communicated with the patient and result sheet given to the patient on 07/05/18. ASSESSMENT: Incomplete: need additional imaging evaluation, BI-RAD 0 RECOMMENDATION: Ultrasound of the right breast. (palpable)
--- NOTE | 2018-07-05 11:00 | USB ---
Reason for exam: additional evaluation requested from abnormal screening. History: Family history of breast cancer in grandmother at age 70 and breast cancer in cousin. Benign excisional biopsy of the right breast, 2012. US Breast Limited RT Right limited breast ultrasound including focal area of concern, retroareolar and axilla demonstrates a 5 x 3 x 4mm lesion too small to characterize at 9 o'clock, questionable cystic cluster and a 10 x 3 x 5mm cystic cluster at 10 o'clock BB. Multiple cystic areas visualized. These results were verbally communicated with the patient and result sheet given to the patient on 07/05/18. ASSESSMENT: Probably benign, BI-RAD 3 RECOMMENDATION: Ultrasound of the right breast in 6 months.
== END ==
LOC: RADMAMWWP 08:56
PROVIDERS: ATTEND Family Medicine
DX: N64.4 Mastodynia (principal); R92.8 Other abnormal and inconclusive findings on diagnostic imaging of breast
CPT/HCPCS: 77066

== ENCOUNTER → 2018-08-11 | Outpatient (CLI) | payer OTHER ==
--- NOTE | 2018-08-11 15:49 | US ---
EXAMINATION TYPE: US transvaginal DATE OF EXAM: 08/11/2018 COMPARISON: NONE CLINICAL HISTORY: N93.9 Abnormal uterine and vaginal bleeding. Patient states having ablation x 10 ye ars ago. Spotting x 2 weeks. TECHNIQUE: Transvaginal (TV). Date of LMP: Unknown, EXAM MEASUREMENTS: Uterus: 8.1 x 5.7 x 5.3 cm Endometrial Stripe: 0.8 cm Right Ovary: 3.4 x 1.6 x 2.5 cm Left Ovary: 3.3 x 2.5 x 2.2 cm 1. Uterus: Retroverted Appears heterogenous in appearance. Multiple lesions seen. Largest lesions measured. 1- 2.0 x 1.9 x 1.6 cm, mid fundus. 2- BRUCE =2.7 x 2.8 x 2.4 cm 2. Endometrium: limited visualization due to ablation. Possible fluid collection within canal at FRANK S - 1.6 x 0.4 cm 3. Right Ovary: Multiple cystic appearing lesions visualized. Largest - 1.8 x 1.6 x 1.6 cm. 4. Left Ovary: Complex lesion with peripheral vascular flow - 1.6 x 1.9 x 1.8 cm. Cystic appearing lesion seen= 1.2 x 1.4 x 1.3 cm 5. Bilateral Adnexa: Free fluid seen adjacent to right ovary 6. Posterior cul-de-sac: no free fluid Cervix- possible echogenic lesion with vascular stalk - 0.8 x 0.8 x 0.2 cm IMPRESSION: 1. Uterine fibroids. 2. Right ovarian cysts. 3. Small moderate free fluid within the right adnexal region. 4. Complex cyst left ovary. Follow-up of this cyst is recommended.
== END ==
LOC: RADUSWWP 14:41
PROVIDERS: ATTEND Family Medicine
DX: D25.9 Leiomyoma of uterus, unspecified (principal); N83.201 Unspecified ovarian cyst, right side; N83.292 Other ovarian cyst, left side
CPT/HCPCS: 76830

== ENCOUNTER → 2018-10-22 | Outpatient (CLI) | payer OTHER ==
[2018-10-22 10:05] LABS: Basophils # (A) 0.1 k/uL (0-0.2); Basophils % (A) 1 %; Eosinophils # (A) 0.3 k/uL (0-0.7); Eosinophils % (A) 3 %; HCT 45.5 % (34.0-46.0); HGB 14.3 gm/dL (11.4-16.0); Lymphocytes # (A) 2.1 k/uL (1.0-4.8); Lymphocytes % (A) 22 %; MCHC 31.5 g/dL (31.0-37.0); MCV 98.4 fL (80.0-100.0); Mean Platelet Volume 6.9; Monocytes # (A) 0.5 k/uL (0-1.0); Monocytes % (A) 5 %; Neutrophils # (A) 6.7 k/uL (1.3-7.7); Neutrophils % (A) 68 %; Platelet Count 265 k/uL (150-450); RBC 4.62 m/uL (3.80-5.40); RDW 13.1 % (11.5-15.5); WBC 9.8 k/uL (3.8-10.6)
[2018-10-22 15:47] LABS: African American GFR (CKD) 98.9 (60.0-200.0); Albumin 4.1 g/dL (3.80-4.90); Albumin/Globulin Ratio 2.41 (1.60-3.17); Anion Gap 5.3 mmol/L (4.00-12.00); BUN/Creat Ratio 27.5 Ratio (12.00-20.00); Calcium 9.4 mg/dL (8.7-10.3); Carbon Dioxide 24.7 mmol/L (21.6-31.8); Globulin 1.7 g/dL (1.6-3.3); LDL Cholesterol,Calculated 103.2 mg/dL (0.0-131.0); Potassium 4.7 mmol/L (3.5-5.5); Total Bilirubin 0.9 mg/dL (0.3-1.2); Total Protein 5.8 g/dL (6.2-8.2); VLDL Calculation 19.8 mg/dL (5.00-40.00)
[2018-10-22 15:54] LABS: T4, Free (Free Thyroxine) 1.3 ng/dL (0.80-1.80)
== END ==
LOC: LABWHC1 09:12
PROVIDERS: ATTEND Family Medicine
DX: E11.9 Type 2 diabetes mellitus without complications (principal); G61.9 Inflammatory polyneuropathy, unspecified; Z79.84 Long term (current) use of oral hypoglycemic drugs; Z13.220 Encounter for screening for lipoid disorders
CPT/HCPCS: 36415; 80053; 80061; 84439; 84443; 85025

== ENCOUNTER → 2018-11-12 | Outpatient (CLI) | payer OTHER ==
--- NOTE | 2018-11-12 11:40 | XR ---
EXAMINATION TYPE: XR cervical spine comp DATE OF EXAM: 11/12/2018 CLINICAL HISTORY: pain COMPARISON: NONE TECHNIQUE: Frontal, lateral, oblique, swimmers, and open mouth view of the cervical spine are obtaine d. FINDINGS: The cervical spine is visualized in its entirety from C1 thru the top of T1 level. It is s atisfactory in alignment without evidence of acute fracture or dislocation. The pre-vertebral soft t issue appears within normal limits. Mild/moderate degenerative narrowing at C5-6 with ventral and zamzam mauri spondylosis. Mild bilateral foraminal encroachment. The C1-C2 articulation is unremarkable on the open mouth view. IMPRESSION: No acute fracture or dislocation is seen in the cervical spine.ICD 10 NO FRACTURE, INITI AL EVALUATION
== END | disposition home or self-care (01) ==
LOC: RADXRMAIN 11:11
PROVIDERS: ATTEND Family Medicine
DX: G61.9 Inflammatory polyneuropathy, unspecified (principal)
CPT/HCPCS: 72050

== ENCOUNTER → 2019-01-20 | Outpatient (CLI) | payer OTHER ==
--- NOTE | 2019-01-20 08:45 | USB ---
Reason for exam: follow-up at short interval from prior study. History: Family history of breast cancer in grandmother at age 70 and breast cancer in cousin. Benign excisional biopsy of the right breast, 2012. Physical Findings: Nurse Summary: nodular, palpable lump, 2 BB's (nurse brenda). US Breast Limited RT Right limited breast ultrasound including focal area of concern, retroareolar and axilla demonstrates a 0.5 x 0.5 x 0.2cm cystic, benign lesion at 9 o'clock, a 0.5 x 0.5 x 0.2cm cluster at 10 o'clock, prior 0.5 x 0.2 x 0.4cm, probably 9 o'clock area on previous. These results were verbally communicated with the patient and result sheet given to the patient on 01/20/19. ASSESSMENT: Benign, BI-RAD 2 RECOMMENDATION: Routine screening mammogram of both breasts in 6 months. Back on schedule for June 2019.
== END | disposition home or self-care (01) ==
LOC: RADUSWWP 01-10 07:59
PROVIDERS: ATTEND Surgery
DX: R92.8 Other abnormal and inconclusive findings on diagnostic imaging of breast (principal)

== ENCOUNTER → 2019-01-20 | Outpatient (CLI) | payer OTHER ==
--- NOTE | 2019-01-20 17:02 | US ---
EXAMINATION TYPE: US kidneys/renal and bladder DATE OF EXAM: 01/20/2019 COMPARISON: No recent MRI at this location. MRI lumbar spine 11/05/2015 reviewed. CLINICAL HISTORY: R94.8 abnormal results of function studies of. Per patient, MRI of spine showed cys t on kidney. MRI was performed at a different facility. Chronic back pain. EXAM MEASUREMENTS: Right Kidney: 9.8 x 5.3 x 6.2 cm Left Kidney: 9.5 x 5.6 x 6.5 cm Extremely limited visualization due to overlying bowel gas Right Kidney: Multiple cystic appearing lesions visualized. Largest seen mid pole = 2.7 x 2.0 x 1.8 cm Left Kidney: Very limited visualization due to bowel gas. Possible cystic lesion = 0.8 x 0.7 x 0.7 c m Bladder: distended, wnl Left jet seen IMPRESSION: 1. Simple appearing right renal cysts. 2. Cyst on the left kidney cannot be classified as simple and follow-up imaging of the bilateral kidn eys can be performed in 6 months confirm stability.
== END | disposition home or self-care (01) ==
LOC: RADUSMAIN 14:53
PROVIDERS: ATTEND Family Medicine
DX: N28.1 Cyst of kidney, acquired (principal); Z88.5 Allergy status to narcotic agent
CPT/HCPCS: 76770

== ENCOUNTER → 2019-02-22 | Outpatient (CLI) | payer OTHER ==
[2019-02-22 14:33] VITALS: BP 142/92; PULSE 72; RESP 18
--- NOTE | 2019-02-22 14:59 | P.PAINCN ---
History of Present Illness - Reason for Consult Consult date: 02/22/19 - History of Present Illness This is the initial consultation visit for this 53 years old female with chronic history of severe low back pain mainly on the left side with radiation to the lateral aspect of the left hip, patient reported that she started having low back pain 2 years ago after she slipped and fell at the [employer], her pain increased over time and is interfering with her quality of life and is constant and increases with any activity, she denies any motor or sensory deficit she denies any fever or night sweats, also patient complaining of severe left arm numbness started 6 months ago she denies any initiating event, she had no pain and only numbness in her left arm Past Medical History Past Medical History: Diabetes Mellitus, Deep Vein Thrombosis (DVT), Hyp erlipidemia Additional Past Medical History / Comment(s): diet controlled DM, right BBB, allergies, fx L1 transvere july 2017July History of Any Multi-Drug Resistant Organisms: MRSA Year Discovered:: 12/29/2014 MDRO Source:: right shoulder Past Surgical History: Bladder Surgery, Cholecystectomy, Hernia Repair, Uterine Ablation Additional Past Surgical History / Comment(s): bladder suspension with peritenium correction, vein surgery on legs, hemmorhoid surg, left axilla surgery for MRSA-2015 Past Anesthesia/Blood Transfusion Reactions: No Reported Reaction Past Psychological History: No Psychological Hx Reported Smoking Status: Former smoker Past Alcohol Use History: Occasional Additional Past Alcohol Use History / Comment(s): quit april 2018 Past Drug Use History: None Reported - Past Family History Father Additional Family Medical History / Comment(s): passed at 47 with enlarged heart secondary to drug abuse Medications and Allergies Home Medications Medication Instructions Recorded Confirmed Type Aspirin [Adult Low Dose Aspirin EC] 81 mg PO DAILY 05/16/18 02/22/19 History Loratadine [Claritin] 10 mg PO DAILY 05/16/18 02/22/19 History Montelukast [Singulair] 10 mg PO DAILY 05/16/18 02/22/19 History Cholecalciferol (Vitamin D3) 2 tab PO DAILY 02/22/19 02/22/19 History [Vitamin D3] Allergies Allergy/AdvReac Type Severity Reaction Status Date / Time codeine Allergy Rash/Hives Verified 02/22/19 14:17 Physical Exam Vitals: Vital Signs Pulse Resp BP Pulse Ox 02/22/19 14:19 72 18 142/92 97 Intake and Output 02/21/19 02/22/19 02/22/19 22:59 06:59 14:59 Other: Weight 79.379 kg REVIEW OF ORGAN SYSTEMS: CONSTITUTIONAL: No fevers or chills. No recent weight loss. EYES: History of troubles with vision. No glasses. HEENT: No difficulties with hearing. No nosebleeds. No difficulty swallowing. RESPIRATORY: Past pneumonia. Denies any troubles with breathing or dyspnea on exertion. CARDIOVASCULAR: Denies any chest pain, palpitations, or recent heart attacks. GASTROINTESTINAL: Denies fatty food intolerance. Has change in bowel habits and gas bloat. GENITOURINARY: Denies any blood in urine. Has increased urinary frequency. NEUROLOGICAL: numbness or tingling along the left upper extremities. No seizure disorders or headaches. MUSCULOSKELETAL: Has left side low back pain. SKIN: Past t skin cancer. No rash. PSYCHIATRIC: Denies current depression or suicidal thoughts. ENDOCRINE: Denies current thyroid disorders. Denies any blood sugar glucose intolerance. HEME/LYMPHATIC: Denies any lumps and bumps around the neck. History of deep venous thrombosis. ALLERGY/IMMUNOLOGY: No immunoglobulin therapy. No immune deficiencies. BREAST: Denies current breast lumps, pain or nipple discharge. Physical Examinations : Constitutiona : Cooperative , not in acute distress . HEENT : nech : supple , no Lymphadenopathy , normal thyroid size . eyes : no ptosis , no icterus, no photophobia . ENT : normal of hearing , normal oropharynx , no Thrush . Respiratory : Chest clear to auscultations Bilaterally , no wheezing , no Rhonchi . Cardiovascula : regular rate and rhythem , S1 , S2 , no S3 , no S4. Gastrointestina : abdomen soft no tenderness , bowel sounds , no organomegally . Genitourinary : Defferred . neurologic : Cranial nerve II to XII intact , no focal neurological deffecit . psychatric : alert , oriented X 3 , appropriate affect , intact judgment and insight . Lymphatic : no Lymphadenopathy . musculoskeltal : Cervical Spine motor stregnth in the deltoid and biceps, normal right side , normal Left side motor stregnth biceps and the wrist extensors normal right side ,normal left side . motor stregnth in the triceps muscle . normal Right side , normal Left side deep tendon reflexes normal at the biceps , normal at Brachioradialis , normal at triceps. cervical facet loading test: Negative Bilaterally Spurling test negative bilaterally. Neck distraction test negative bilaterally. Monique sign negative bilaterally. Lumber spine moter stegnth lower extremities ,thigh and legs 5/5 Right side , 5/5 Left side deep tendon reflexes : normal Knee Jerk , normal ankle Jerk lumber facet Loading Test = positive on the left side and negative on the right side Range of motion of the lumbar spine Flexion 30 degrees, extension 10 degrees strait leg raising test= negative bilaterally Fabere test= negative bilaterally. tenderness over the Sacroiliac joint on the left side Gaenslen test positive on the left side Seated flexion test positive left side Severe tenderness over the left trochanteric bursa Results Comments: MRI of the cervical spine left side cervical canal stenosis at C5 6 levels MRI of the lumbar spine multilevel lumbar bulging disc disease with canal stenosis at L4 5 and multilevel lumbar facet arthropathy from L3 4 L4 5 and L5- S1 Assessment and Plan Plan: Assessment and plan=1-severe and chronic low back pain secondary to lumbar spondylosis with facet arthropathy, lumbar degenerative disc disease Patient will be good candidate to have left side diagnostic medial branch block L2,L3, L4, L5 (to target facet joint L3- 4,L45,L5S1) Time with Patient: Greater than 30 PQRS Measure Charge Sheet Measure #130: Documentation of Current Meds in Medical Chart: Patient's m edications documented in chart Measure #226: Tobacco Use: Screen & Cessation Intervention: Pt not a tobacco user Measure #111: Pneumonia Vaccination: Pneumococcal vaccine NOT administered or previously given Measure #47: Advance Care Plan: Advance care planning discussed & documented, pt chose/unable to give Measure #412: Opioid Treatment Agreement: No documentation of signed opioid treatment agreement Measure #408: Opioid Therapy Follow-up Evaluation: Patient had NO f/u eval minimum every 3 months during opioid therapy Measure #317: Preventitive Care & Scrn High Bld Press & F/U: Pre-hypertensive or hypertensive BP documented, pt will f/u with PCP Measure #128: Body Mass Index (BMI) Screening & Follow-up: BMI documented ABOVE normal parameters - f/u documented Measure #131: Pain Assessment & Follow-up: Pain positive & plan documented, Follow-up scheduled Measure #431: Unhealthy Alcohol Use Preventative Care & Scrn: Patient not identified as an unhealthy alcohol user PQRS Narrative: Smoking Status Former smoker Blood Pressure 142/92 Pain Intensity [Left Lower 8 Back] Scale Used Numeric (1 - 10) Hx Alcohol Use (MH) No Home Medications: Ambulatory Orders Aspirin [Adult Low Dose Aspirin EC] 81 mg PO DAILY 05/16/18 Loratadine [Claritin] 10 mg PO DAILY 05/16/18 Montelukast [Singulair] 10 mg PO DAILY 05/16/18 Cholecalciferol (Vitamin D3) [Vitamin D3] 2 tab PO DAILY 02/22/19
== END ==
LOC: PNWHC3 13:17
PROVIDERS: ATTEND Specialist
DX: G89.29 Other chronic pain (principal); M47.816 Spondylosis without myelopathy or radiculopathy, lumbar region; M46.96 Unspecified inflammatory spondylopathy, lumbar region; M51.36 Other intervertebral disc degeneration, lumbar region; Z87.891 Personal history of nicotine dependence; Z79.899 Other long term (current) drug therapy; Z79.82 Long term (current) use of aspirin; Z88.5 Allergy status to narcotic agent
CPT/HCPCS: 99211

== ENCOUNTER → 2019-04-18 | Outpatient (CLI) | payer OTHER ==
[2019-04-18 17:03] LABS: African American GFR (CKD) 98.9 (60.0-200.0); Non-African American GFR(CKD) 85.4 (60.0-200.0)
== END | disposition home or self-care (01) ==
LOC: LABWHC1 07:29
PROVIDERS: ATTEND Urology
DX: R31.21 Asymptomatic microscopic hematuria (principal)
CPT/HCPCS: 36415; 82565; 84520

== ENCOUNTER → 2019-09-23 | Outpatient (CLI) | payer OTHER ==
--- NOTE | 2019-09-27 09:34 | MM ---
Reason for exam: screening (asymptomatic). Last mammogram was performed 1 year and 3 months ago. History: Patient is postmenopausal. Family history of breast cancer in maternal grandmother at age 70 and breast cancer in maternal cousin. Benign excisional biopsy of the right breast, 2012. Physical Findings: A clinical breast exam by your physician is recommended on an annual basis and results should be correlated with mammographic findings. MG Screening Mammo w CAD Bilateral CC and MLO view(s) were taken. Prior study comparison: July 05, 2018, bilateral MG diagnostic mammo w CAD WIL. November 04, 2017, bilateral MG screening mammo w CAD. August 22, 2016, bilateral MG screening mammo w CAD. The breast tissue is heterogeneously dense. This may lower the sensitivity of mammography. There is chronic nodularity in the right breast upper outer quadrant posteriorly. No significant changes when compared with prior studies. ASSESSMENT: Negative, BI-RAD 1 RECOMMENDATION: Routine screening mammogram of both breasts in 1 year.
== END | disposition home or self-care (01) ==
LOC: RADMAMWWP 07:16
PROVIDERS: ATTEND Surgery
DX: Z12.31 Encounter for screening mammogram for malignant neoplasm of breast (principal)
CPT/HCPCS: 77067

== ENCOUNTER → 2020-09-25 | Outpatient (CLI) | payer BC, OTHER ==
--- NOTE | 2020-09-26 10:36 | MM ---
Reason for exam: screening (asymptomatic). Last mammogram was performed 1 year ago. History: Patient is postmenopausal. Family history of breast cancer in maternal grandmother at age 70 and breast cancer in maternal cousin. Benign excisional biopsy of the right breast, 2012. Physical Findings: A clinical breast exam by your physician is recommended on an annual basis and results should be correlated with mammographic findings. MG 3D Screening Mammo W/Cad Bilateral CC and MLO view(s) were taken. Prior study comparison: September 23, 2019, bilateral MG screening mammo w CAD. July 05, 2018, bilateral MG diagnostic mammo w CAD [facility]. November 04, 2017, bilateral MG screening mammo w CAD. There are scattered fibroglandular densities. No significant changes when compared with prior studies. ASSESSMENT: Benign, BI-RAD 2 RECOMMENDATION: Routine screening mammogram of both breasts in 1 year.
== END | disposition home or self-care (01) ==
LOC: RADMAMWWP 08:51
PROVIDERS: ATTEND Family Medicine
DX: Z12.31 Encounter for screening mammogram for malignant neoplasm of breast (principal); Z78.0 Asymptomatic menopausal state; Z80.3 Family history of malignant neoplasm of breast
CPT/HCPCS: 77063; 77067

== ENCOUNTER 2021-05-17 14:56 | Emergency (ER) | payer BC, OTHER ==
--- NOTE | 2021-05-17 15:51 | ED ---
General Adult HPI - General Chief complaint: Upper Respiratory Infection Stated complaint: COVID+, Wants Infusion Source: patient, RN notes reviewed Mode of arrival: ambulatory Limitations: no limitations - History of Present Illness Initial comments: Patient is a pleasant 55-year-old female presenting to the emergency department for COVID-19 infection. Patient onset of symptoms 9 days ago. Patient did test +9 days ago. Patient has been vaccinated and boosted. Patient complains of mild cough. Patient has had a lot of fatigue. Patient has had some headaches. Patient gets some dyspnea with exertion only. Patient has had some nausea, no vomiting. Patient has had some loose stools however that has resolved. - Related Data Home Medications Medication Instructions Recorded Confirmed Aspirin [Adult Low Dose Aspirin EC] 81 mg PO DAILY 05/16/18 02/22/19 Loratadine [Claritin] 10 mg PO DAILY 05/16/18 02/22/19 Montelukast [Singulair] 10 mg PO DAILY 05/16/18 02/22/19 Cholecalciferol (Vitamin D3) 2 tab PO DAILY 02/22/19 02/22/19 [Vitamin D3] Allergies Allergy/AdvReac Type Severity Reaction Status Date / Time codeine Allergy Rash/Hives Verified 05/17/21 14:59 Review of Systems ROS Statement: Those systems with pertinent positive or pertinent negative responses have been documented in the HPI. ROS Other: All systems not noted in ROS Statement are negative. Constitutional: Denies: fever Eyes: Denies: eye pain ENT: Denies: throat pain Respiratory: Reports: as per HPI, cough Cardiovascular: Denies: chest pain Endocrine: Reports: fatigue Gastrointestinal: Reports: nausea, diarrhea. Denies: abdominal pain, vomiting Genitourinary: Denies: dysuria Musculoskeletal: Denies: back pain Skin: Denies: rash Neurological: Denies: weakness Past Medical History Past Medical History: Diabetes Mellitus, Deep Vein Thrombosis (DVT), Hyperlipidemia Additional Past Medical History / Comment(s): diet controlled DM, right BBB, allergies, fx L1 transvere july 2017July History of Any Multi-Drug Resistant Organisms: MRSA Date of last positivie culture/infection: 12/29/2014 MDRO Source:: right shoulder Past Surgical History: Bladder Surgery, Cholecystectomy, Hernia Repair, Uterine Ablation Additional Past Surgical History / Comment(s): bladder suspension with peritenium correction, vein surgery on legs, hemmorhoid surg, left axilla surgery for MRSA-2016 Past Anesthesia/Blood Transfusion Reactions: No Reported Reaction Past Psychological History: Anxiety, Depression Smoking Status: Current every day smoker Past Alcohol Use History: Occasional Past Drug Use History: None Reported - Past Family History Father Additional Family Medical History / Comment(s): passed at 47 with enlarged heart secondary to drug abuse General Exam Limitations: no limitations General appearance: alert, in no apparent distress Head exam: Present: normocephalic Eye exam: Present: normal appearance Neck exam: Present: normal inspection Respiratory exam: Present: normal lung sounds bilaterally Cardiovascular Exam: Present: regular rate, normal rhythm GI/Abdominal exam: Present: soft. Absent: tenderness Extremities exam: Present: normal inspection Neurological exam: Present: alert Psychiatric exam: Present: normal affect, normal mood Skin exam: Present: normal color Course Vital Signs 05/17/21 05/17/21 14:59 15:46 Temperature 97.0 F L 98.4 F Pulse Rate 72 91 Respiratory 18 14 Rate Blood Pressure 149/91 124/59 O2 Sat by Pulse 100 94 L Oximetry Medical Decision Making - Medical Decision Making Patient does not qualify for monoclonal antibody infusion. Patient updated. Disposition Clinical Impression: COVID-19 Disposition: HOME SELF-CARE Condition: Stable Instructions (If sedation given, give patient instructions): Coronavirus Disease 2019 (COVID-19) Additional Instructions: Continue [id number] vitamin C, vitamin D, and zinc. Tylenol as needed for fever or muscle aches. Please follow-up with primary care physician in the next day or 2 for recheck. Return for difficulty breathing, not tolerating fluids, worsening symptoms or other concerns. Is patient prescribed a controlled substance at d/c from ED?: No Referrals: Wili Erickson MD [Primary Care Provider] - 1-2 days Time of Disposition: 15:51
[2021-05-17 15:58] VITALS: BP 149/91; PULSE 72; RESP 18; TEMP 97
== END 2021-05-17 16:04 | disposition home or self-care (01) ==
LOC: EC 14:56
DX: U07.1 COVID-19 (principal); E11.9 Type 2 diabetes mellitus without complications; F17.200 Nicotine dependence, unspecified, uncomplicated; Z88.5 Allergy status to narcotic agent
CPT/HCPCS: 99283

== ENCOUNTER → 2021-10-11 | Outpatient (CLI) | payer OTHER ==
[2021-10-11 09:25] LABS: Creatinine,Urine Random 70.4 mg/dL
[2021-10-11 14:27] LABS: Basophils # (A) 0.05 X 10*3/uL (0.00-0.10); Basophils % (A) 1.1 %; Eosinophils # (A) 0.15 X 10*3/uL (0.04-0.35); Eosinophils % (A) 3.3 %; HCT 37.9 % (37.2-46.3); HGB 11.7 g/dL (12.0-15.0); Immature Grans, Automated 0.2 %; Lymphocytes # (A) 1.72 X 10*3/uL (0.90-5.00); Lymphocytes % (A) 37.6 %; MCH 30.7 pg (27.0-32.0); MCHC 30.9 g/dL (32.0-37.0); MCV 99.5 fL (80.0-97.0); Mean Platelet Volume 10.9 fL (9.5-12.2); Monocytes # (A) 0.35 X 10*3/uL (0.20-1.00); Monocytes % (A) 7.6 %; NRBC Per 100 WBC 0 /100 WBCS (0.0-0.0); Neutrophils % (A) 50.2 %; Platelet Count 277 X 10*3/uL (140-440); RBC 3.81 X 10*6/uL (4.10-5.20); RDW 13.3 % (11.5-14.5); WBC 4.58 X 10*3/uL (4.50-10.00)
[2021-10-11 14:54] LABS: African American GFR (CKD) 96.9 (60.0-200.0); Anion Gap 11.5 mmol/L (10.00-18.00); Blood Urea Nitrogen 22.4 mg/dL (9.0-27.0); Calcium 9.4 mg/dL (8.7-10.3); Carbon Dioxide 24.5 mmol/L (20.0-27.5); Non-African American GFR(CKD) 83.6 (60.0-200.0); Phosphorus 3.5 mg/dL (2.4-5.1); Potassium 4.3 mmol/L (3.5-5.5); Uric Acid 4.5 mg/dL (2.9-7.7)
[2021-10-11 15:15] LABS: Albumin 4.4 g/dL (3.8-4.9)
[2021-10-11 16:22] LABS: Appearance,Urine Clear (Clear); Bilirubin,Urine Negative (Negative); Blood,Urine Negative (Negative); Color,Urine Yellow (Yellow); Ketones,Urine 15 mg/dL (Negative); Nitrite,Urine Negative (Negative); Specific Gravity,Urine 1.018 (1.001-1.030); Urobilinogen,Urine 0.2 (0.2,1.0)
[2021-10-11 16:45] LABS: Bacteria,Urine Trace /HPF (None Seen); Yeast (UA) Present /LPF (None Seen)
[2021-10-11 20:41] LABS: % Iron Saturation 20.5 (12.00-45.00)
== END | disposition home or self-care (01) ==
LOC: LABWHC1 08:02
PROVIDERS: ATTEND Internal Medicine Nephrology
DX: N18.2 Chronic kidney disease, stage 2 (mild) (principal); E55.9 Vitamin D deficiency, unspecified; N25.81 Secondary hyperparathyroidism of renal origin; M10.9 Gout, unspecified; N39.0 Urinary tract infection, site not specified; D64.9 Anemia, unspecified; R80.9 Proteinuria, unspecified
CPT/HCPCS: 36415; 80048; 81001; 82040; 82306; 82570; 82728; 83540; 83550; 83735; 83970; 84100; 84156; 84550; 85025

== ENCOUNTER → 2021-10-11 | Outpatient (CLI) | payer OTHER | END | disposition home or self-care (01) | LOC: RADMAMWWP 07:35 | PROVIDERS: ATTEND Family Medicine | DX: Z12.31 Encounter for screening mammogram for malignant neoplasm of breast (principal) | CPT/HCPCS: 77067 ==

== ENCOUNTER → 2021-10-18 | Outpatient (CLI) | payer OTHER ==
--- NOTE | 2021-10-18 09:34 | MM ---
Reason for Exam: Additional evaluation requested from abnormal screening. Last screening mammogram was performed less than 1 month ago. Patient History: Menarche at age 15. First Full-Term at age 26. Postmenopausal. Hormonal Contraceptives, from age 22 until age 26. 2013, Benign Excisional Biopsy on the right side. Maternal grandmother had breast cancer, age 70. Maternal cousin had breast cancer at or over age 50. Risk Values: Angelina 5 year model risk: 1.2%. NCI Lifetime model risk: 8.8%. Prior Study Comparison: 09/25/2020 Bilateral Screening Mammogram, [facility]. 10/11/2021 Bilateral MG screening mammo w CAD, [facility]. Tissue Density: The breast tissue is heterogeneously dense. This may lower the sensitivity of mammography. Findings: No persistent abnormality right breast on additional views obtained. There is distortion left breast appears to have improved on spot compression imaging. Precautionary 6 month follow-up is advised. Overall Assessment: Probably benign, BI-RAD 3 Management: Diagnostic Mammogram of the left breast in 6 months. A clinical breast exam by your physician is recommended on an annual basis and results should be correlated with mammographic findings. This exam should not preclude additional follow-up of suspicious palpable abnormalities. Results were given to the patient verbally at the time of exam. Electronically signed and approved by: Jacob Ponce M.D. Radiologis
[2021-10-18 14:21] LABS: Basophils # (A) 0.05 X 10*3/uL (0.00-0.10); HCT 41.3 % (37.2-46.3); HGB 12.8 g/dL (12.0-15.0); Immature Grans, Automated 0.2 %; Lymphocytes # (A) 1.72 X 10*3/uL (0.90-5.00); Lymphocytes % (A) 34.7 %; Mean Platelet Volume 10.9 fL (9.5-12.2); Monocytes # (A) 0.35 X 10*3/uL (0.20-1.00); Monocytes % (A) 7.1 %; NRBC Per 100 WBC 0 /100 WBCS (0.0-0.0); Neutrophils # (A) 2.62 X 10*3/uL (1.80-7.70); Platelet Count 259 X 10*3/uL (140-440); RBC 4.13 X 10*6/uL (4.10-5.20); RDW 13.4 % (11.5-14.5); WBC 4.95 X 10*3/uL (4.50-10.00)
[2021-10-18 14:58] LABS: ALT 14 U/L (8-44); AST 12 U/L (13-35); African American GFR (CKD) 98.1 (60.0-200.0); Albumin 4.3 g/dL (3.8-4.9); Albumin/Globulin Ratio 2.39 (1.60-3.17); Alkaline Phosphatase 50 U/L (41-126); BUN/Creat Ratio 21.21 Ratio (12.00-20.00); Blood Urea Nitrogen 16.8 mg/dL (9.0-27.0); Calcium 9.3 mg/dL (8.7-10.3); Carbon Dioxide 28.7 mmol/L (20.0-27.5); Chloride 105 mmol/L (96-109); Chol/HDL Ratio 2.58 Ratio; Globulin 1.8 g/dL (1.6-3.3); Glucose 131 mg/dL (70-110); LDL Cholesterol,Calculated 98.5 mg/dL (0.0-131.0); Non-African American GFR(CKD) 84.6 (60.0-200.0); Potassium 4.2 mmol/L (3.5-5.5); Sodium 141 mmol/L (135-145); Total Protein 6.1 g/dL (6.2-8.2)
== END | disposition home or self-care (01) ==
LOC: RADMAMWWP 08:48
PROVIDERS: ATTEND Family Medicine
DX: Z12.31 Encounter for screening mammogram for malignant neoplasm of breast (principal); R92.8 Other abnormal and inconclusive findings on diagnostic imaging of breast; E11.9 Type 2 diabetes mellitus without complications; N28.1 Cyst of kidney, acquired; E78.2 Mixed hyperlipidemia; R10.9 Unspecified abdominal pain
CPT/HCPCS: 77062; 77066; 80053; 80061; 84443; 85025

== ENCOUNTER 2021-11-26 15:15 | Emergency (ER) | payer OTHER ==
[2021-11-26 15:19] VITALS: BP 161/103; PULSE 79; RESP 18; TEMP 98.2
--- NOTE | 2021-11-26 15:52 | ED ---
General Adult HPI - General Chief complaint: Recheck/Abnormal Lab/Rx Stated complaint: [facility]-Needle Stick Time Seen by Provider: 11/26/21 15:20 Source: patient Mode of arrival: ambulatory Limitations: no limitations - History of Present Illness Initial comments: 56-year-old female presents to emergency department for needle stick injury. 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 States that she sustained a needlestick injury to her left thumb after she checked a glucose on the patient. She was punctured in the left thumb pad after the Accu- Chek had been obtained by the needle. She was wearing gloves. Immediately started squeezing her finger to cause her to bleed and then ran it under water for approximately 10 minutes. She denies any other injuries. Presents today for testing of infectious diseases. She is vaccinated against hepatitis B. Unaware of the status of the patient however may possibly be able to obtain testing - Related Data Home Medications Medication Instructions Recorded Confirmed Aspirin [Adult Low Dose Aspirin EC] 81 mg PO DAILY 05/16/18 02/22/19 Loratadine [Claritin] 10 mg PO DAILY 05/16/18 02/22/19 Montelukast [Singulair] 10 mg PO DAILY 05/16/18 02/22/19 Cholecalciferol (Vitamin D3) 2 tab PO DAILY 02/22/19 02/22/19 [Vitamin D3] Allergies Allergy/AdvReac Type Severity Reaction Status Date / Time codeine Allergy Rash/Hives Verified 11/26/21 15:19 Review of Systems ROS Statement: Those systems with pertinent positive or pertinent negative responses have been documented in the HPI. ROS Other: All systems not noted in ROS Statement are negative. Past Medical History Past Medical History: Diabetes Mellitus, Deep Vein Thrombosis (DVT), Hyperlipidemia Additional Past Medical History / Comment(s): diet controlled DM, right BBB, allergies, fx L1 transvere july 2017July History of Any Multi-Drug Resistant Organisms: MRSA Date of last positivie culture/infection: 12/29/2014 MDRO Source:: right shoulder Past Surgical History: Bladder Surgery, Cholecystectomy, Hernia Repair, Uterine Ablation Additional Past Surgical History / Comment(s): bladder suspension with peritenium correction, vein surgery on legs, hemmorhoid surg, left axilla surgery for MRSA-2015 Past Anesthesia/Blood Transfusion Reactions: No Reported Reaction Past Psychological History: Anxiety, Depression Smoking Status: Current every day smoker Past Alcohol Use History: Occasional Past Drug Use History: None Reported - Past Family History Father Additional Family Medical History / Comment(s): passed at 47 with enlarged heart secondary to drug abuse General Exam Limitations: no limitations General appearance: alert, in no apparent distress Head exam: Present: atraumatic, normocephalic, normal inspection Eye exam: Present: normal appearance, PERRL, EOMI. Absent: scleral icterus, conjunctival injection, periorbital swelling ENT exam: Present: normal exam, mucous membranes moist Neck exam: Present: normal inspection. Absent: tenderness, meningismus, lymphadenopathy Respiratory exam: Present: normal lung sounds bilaterally. Absent: respiratory distress, wheezes, rales, rhonchi, stridor Cardiovascular Exam: Present: regular rate, normal rhythm, normal heart sounds. Absent: systolic murmur, diastolic murmur, rubs, gallop, clicks Extremities exam: Present: normal inspection, full ROM, normal capillary refill, other (Pinpoint defect left thumb pad). Absent: tenderness, pedal edema, joint swelling, calf tenderness Back exam: Present: normal inspection Neurological exam: Present: alert, oriented X3, CN II-XII intact Psychiatric exam: Present: normal affect, normal mood Skin exam: Present: warm, dry, intact, normal color. Absent: rash Course Vital Signs 11/26/21 15:16 Temperature 98.2 F Pulse Rate 79 Respiratory 18 Rate Blood Pressure 161/103 O2 Sat by Pulse 99 Oximetry Medical Decision Making - Medical Decision Making Patient placed into room 32. Laboratory studies are obtained. Patient will be called for any positive results. He is to follow-up with [facility]. Patient understood and was discharged home in stable condition - Lab Data Lab Results 11/26/21 11/26/21 Range/Units 15:34 15:34 Hep Bs Antibody Reactive A (Nonreactive) Hep Bs Antibody, Quant 1000.0 mIU/mL Hep C IgG Ab Nonreactive (Nonreactive) HIV-1 Antibody Non-Reactive (Non-Reactive) HIV Ag/Ab Interpret HIV p24 Antibody Non-Reactive (Non-Reactive) HIV-2 Antibody Non-Reactive (Non-Reactive) HIV P24 Antigen Non-Reactive (Non-Reactive) Disposition Clinical Impression: Needle stick injury of finger Disposition: HOME SELF-CARE Condition: Stable Instructions (If sedation given, give patient instructions): Needle Stick Injuries (ED) Additional Instructions: You will be called for any positive results. You will have to follow up with [facility] for further testing. I recommend that you follow up with your work and possibly obtain blood from the patient that you were exposed to. Return for any new or worsening symptoms Is patient prescribed a controlled substance at d/c from ED?: No Referrals: Wili Erickson MD [Primary Care Provider] - 1-2 days Time of Disposition: 15:53
[2021-11-27 00:59] LABS: Hepatitis B Surface Antibody Reactive (Nonreactive)
[2021-11-27 02:05] LABS: Hepatitis C IgG Antibody Nonreactive (Nonreactive)
[2021-11-27 03:49] LABS: HIV 2 AB Non-Reactive (Non-Reactive); HIV AB P24 Non-Reactive (Non-Reactive); HIV P24 AG Non-Reactive (Non-Reactive)
== END 2021-11-26 16:00 | disposition home or self-care (01) ==
LOC: EC 15:15
DX: T14.8XXA Other injury of unspecified body region, initial encounter (principal); E11.9 Type 2 diabetes mellitus without complications; I10 Essential (primary) hypertension; F17.200 Nicotine dependence, unspecified, uncomplicated; Z88.5 Allergy status to narcotic agent; W46.1XXA Contact with contaminated hypodermic needle, initial encounter
CPT/HCPCS: 36415; 86706; 86803; 87390; 99283

== ENCOUNTER → 2022-04-29 | Outpatient (CLI) | payer OTHER ==
--- NOTE | 2022-04-29 11:01 | MM ---
Reason for Exam: Follow-up at short interval from prior study. Last screening mammogram was performed 7 month(s) ago. Patient History: Menarche at age 15. First Full-Term at age 26. Hysterectomy at age 56. Postmenopausal. Hormonal Contraceptives, from age 22 until age 26. 2013, Benign Excisional Biopsy on the right side. Maternal grandmother had breast cancer, age 70. Maternal cousin had breast cancer, age 48. Risk Values: Angelina 5 year model risk: 1.2%. NCI Lifetime model risk: 8.8%. Prior Study Comparison: 09/25/2020 Bilateral Screening Mammogram, [facility]. 10/11/2021 Bilateral MG screening mammo w CAD, [facility]. 10/18/2021 Bilateral MG 3D work up w/cad [facility], [facility]. Tissue Density: Left: The breast tissue is heterogeneously dense. This may lower the sensitivity of mammography. Findings: Analyzed By CAD. Benign-appearing left axillary lymph nodes are redemonstrated. No suspicious new mass or worrisome group of microcalcification in the left breast. Overall Assessment: Negative, BI-RAD 1 Management: Screening Mammogram of both breasts in 6 months. Return to routine follow-up. Results were given to the patient verbally at the time of exam. Electronically signed and approved by: rAi Pete M.D.
== END | disposition home or self-care (01) ==
LOC: RADMAMWWP 10:21
PROVIDERS: ATTEND Family Medicine
DX: R92.8 Other abnormal and inconclusive findings on diagnostic imaging of breast (principal); Z78.0 Asymptomatic menopausal state; Z80.3 Family history of malignant neoplasm of breast
CPT/HCPCS: 77065

== ENCOUNTER 2022-11-02 22:05 | Emergency (ER) | payer OTHER ==
[2022-11-02 22:14] VITALS: TEMP 98.2
--- NOTE | 2022-11-02 23:09 | ED ---
General Adult HPI - General Chief complaint: Recheck/Abnormal Lab/Rx Stated complaint: Personal Time Seen by Provider: 11/02/22 22:50 Source: patient Mode of arrival: ambulatory Limitations: no limitations - History of Present Illness Initial comments: This patient is a 57-year-old woman with history of previous hemorrhoids with thrombosis, who presents to have evaluation of perianal swelling and pain. The patient states that she was at work and had a bowel movement. She noticed that there was some swelling and pain at the anus. She states that this is how her previous thrombosed hemorrhoids usually began. Not currently having bleeding. No other symptoms. -: hour(s) Radiation: non-radiation Quality: sharp Consistency: intermittent Improves with: none Worsens with: other (Bowel movement) Associated Symptoms: denies other symptoms Treatments Prior to Arrival: none - Related Data Home Medications Medication Instructions Recorded Confirmed Aspirin [Adult Low Dose Aspirin EC] 81 mg PO DAILY 05/16/18 02/22/19 Loratadine [Claritin] 10 mg PO DAILY 05/16/18 02/22/19 Montelukast [Singulair] 10 mg PO DAILY 05/16/18 02/22/19 Cholecalciferol (Vitamin D3) 2 tab PO DAILY 02/22/19 02/22/19 [Vitamin D3] Previous Rx's Medication Instructions Recorded Hydrocortisone [Anusol-Hc] 1 applic RECTAL TID #30 gm 11/02/22 Allergies Allergy/AdvReac Type Severity Reaction Status Date / Time codeine Allergy Rash/Hives Verified 12/15/21 21:43 Review of Systems ROS Statement: Those systems with pertinent positive or pertinent negative responses have been documented in the HPI. ROS Other: All systems not noted in ROS Statement are negative. Constitutional: Denies: fever Cardiovascular: Denies: chest pain Gastrointestinal: Denies: abdominal pain Hematological/Lymphatic: Denies: easy bleeding Past Medical History Past Medical History: Diabetes Mellitus, Deep Vein Thrombosis (DVT), Hyperlipidemia Additional Past Medical History / Comment(s): diet controlled DM, right BBB, allergies, fx L1 transvere july 2017July , covid 04/2021 History of Any Multi-Drug Resistant Organisms: MRSA Date of last positivie culture/infection: 12/30/2015 MDRO Source:: left axilla Past Surgical History: Bladder Surgery, Cholecystectomy, Hernia Repair, Hysterectomy, Uterine Ablation Additional Past Surgical History / Comment(s): bladder suspension with peritenium correction, vein surgery on legs, hemmorhoid surg, left axilla surgery for MRSA-2016, pevlic floor reconstruction, hyterectomy, bladder suspension, and rectocele Past Anesthesia/Blood Transfusion Reactions: No Reported Reaction Past Psychological History: Anxiety, Depression Smoking Status: Former smoker Past Alcohol Use History: Occasional Past Drug Use History: None Reported - Past Family History Father Additional Family Medical History / Comment(s): passed at 47 with enlarged heart secondary to drug abuse General Exam Limitations: no limitations General appearance: alert, in no apparent distress Head exam: Present: atraumatic, normocephalic GI/Abdominal exam: Present: soft. Absent: distended, tenderness, guarding, rebound, rigid, mass Rectal exam: Present: normal rectal tone, hemorrhoids, tenderness, other (The patient has 1 hemorrhoid which is not thrombosed.). Absent: mass Skin exam: Present: warm, dry, intact, normal color. Absent: rash Course Vital Signs 11/02/22 11/02/22 22:10 23:20 Temperature 98.2 F Pulse Rate 75 76 Respiratory 16 20 Rate Blood Pressure 159/100 167/92 O2 Sat by Pulse 100 98 Oximetry Medical Decision Making - Medical Decision Making Was pt. sent in by a medical professional or institution (JEFF Miramontes, NETWORKING ADMINISTRATOR, urgent care, hospital, or intermediate...) When possible be specific @ -[No] Did you speak to anyone other than the patient for history (EMS, parent, family, police, friend...)? What history was obtained from this source @ -[No] Did you review nursing and triage notes (agree or disagree)? Why? @ -[I reviewed and agree with nursing and triage notes] Were old charts reviewed (outside hosp., previous admission, EMS record, old EKG, old radiological studies, urgent care reports/EKG's, intermediate records)? Report findings @ -[No old charts were reviewed] Differential Diagnosis (chest pain, altered mental status, abdominal pain women, abdominal pain men, vaginal bleeding, weakness, fever, dyspnea, syncope, headache, dizziness, GI bleed, back pain, seizure, CVA, palpatations, mental health, musculoskeletal)? @ -[Differential diagnosis for perianal swelling includes hemorrhoid, rectal prolapse, abscess, papilloma, other mass including possible malignancy, amongst other conditions EKG interpreted by me (3pts min.). @ -[ X-rays interpreted by me (1pt min.). @ -[None done] CT interpreted by me (1pt min.). @ -[None done] U/S interpreted by me (1pt. min.). @ -[None done] What testing was considered but not performed or refused? (CT, X-rays, U/S, labs)? Why? @ -[None] What meds were considered but not given or refused? Why? @ -[None] Did you discuss the management of the patient with other professionals (professionals i.e. DrLucinda, PA, NETWORKING ADMINISTRATOR, lab, RT, psych nurse, social insurance adviser, athletic agent, teacher, associate loan officer, residential case manager)? Give summary @ -[No] Was smoking cessation discussed for >3mins.? @ -[No] Was critical care preformed (if so, how long)? @ -[No] Were there social determinants of health that impacted care today? How? (Homelessness, low income, unemployed, alcoholism, drug addiction, transportation, low edu. Level, literacy, decrease access to med. care, snf, rehab)? @ -[No] Was there de-escalation of care discussed even if they declined (Discuss DNR or withdrawal of care, Hospice)? DNR status @ -[No] What co-morbidities impacted this encounter? (DM, HTN, Smoking, COPD, CAD, Cancer, CVA, ARF, Chemo, Hep., AIDS, mental health diagnosis, sleep apnea, m orbid obesity)? @ -[None] Was patient admitted / discharged? Hospital course, mention meds given and route, prescriptions, significant lab abnormalities, going to OR and other pertinent info. @ -[Patient is stable for discharge with follow-up to surgery. We discussed appropriate further care as an outpatient as well as return parameters. Undiagnosed new problem with uncertain prognosis? @ -[No] Drug Therapy requiring intensive monitoring for toxicity (Heparin, Nitro, Insulin, Cardizem)? @ -[No] Were any procedures done? @ -[No] Diagnosis/symptom? @ -[Acute hemorrhoid Acute, or Chronic, or Acute on Chronic? @ -[default] Uncomplicated (without systemic symptoms) or Complicated (systemic symptoms)? @ -[Uncomplicated Side effects of treatment? @ -[No] Exacerbation, Progression, or Severe Exacerbation? @ -[No] Poses a threat to life or bodily function? How? (Chest pain, [place], [place], pneumonia, PE, COPD, DKA, ARF, appy, cholecystitis, CVA, Diverticulitis, Homicidal, Suicidal, threat to staff... and all critical care pts) @ -[No] Disposition Clinical Impression: Hemorrhoid Disposition: HOME SELF-CARE Condition: Good Instructions (If sedation given, give patient instructions): Astringent (On the skin), Hemorrhoids (ED) Prescriptions: Hydrocortisone [Anusol-Hc] 1 applic RECTAL TID #30 gm Is patient prescribed a controlled substance at d/c from ED?: No Referrals: Wili Erickson MD [Primary Care Provider] - 1-2 days Nadeem Lopez MD [Medical Doctor] - 1-2 days
[2022-11-02 23:21] VITALS: BP 167/92; PULSE 76; RESP 20
== END 2022-11-02 23:21 | disposition home or self-care (01) ==
LOC: EC 22:05
DX: K64.9 Unspecified hemorrhoids (principal); E11.9 Type 2 diabetes mellitus without complications; E78.5 Hyperlipidemia, unspecified; F41.9 Anxiety disorder, unspecified; F32.A Depression, unspecified; Z79.82 Long term (current) use of aspirin; Z79.899 Other long term (current) drug therapy; Z88.8 Allergy status to other drugs, medicaments and biological substances; Z87.891 Personal history of nicotine dependence; Z86.16 Personal history of COVID-19; Z90.49 Acquired absence of other specified parts of digestive tract
CPT/HCPCS: 99283

== ENCOUNTER → 2022-11-04 | Outpatient (CLI) | payer OTHER ==
--- NOTE | 2022-11-04 08:58 | MM ---
Reason for Exam: Screening (asymptomatic). Last mammogram was performed 1 year(s) and 1 month(s) ago. Patient History: Menarche at age 15. First Full-Term at age 26. Hysterectomy at age 56. Postmenopausal. Hormonal Contraceptives, from age 22 until age 26. 2013, Benign Excisional Biopsy on the right side. Maternal grandmother had breast cancer, age 70. Maternal cousin had breast cancer, age 48. Risk Values: Angelina 5 year model risk: 1.2%. NCI Lifetime model risk: 8.7%. Prior Study Comparison: 10/11/2021 Bilateral MG screening mammo w CAD, [facility]. 10/18/2021 Bilateral MG 3D work up w/cad [facility], [facility]. 04/29/2022 Left MG diagnostic mammo LT w CAD, [facility]. Tissue Density: The breast tissue is heterogeneously dense. This may lower the sensitivity of mammography. Findings: Analyzed By CAD. There is no suspicious group of microcalcifications or new suspicious mass in either breast. Overall Assessment: Negative, BI-RAD 1 Management: Screening Mammogram of both breasts in [address] [facility] will attempt to contact patient to return for supplemental views and ultrasound if indicated. Patient should continue monthly self-breast exams. A clinical breast exam by your physician is recommended on an annual basis. This exam should not preclude additional follow-up of suspicious palpable abnormalities. Note on Angelina scores and lifetime risk: 1. A Angelina score greater than 3% is considered moderate risk. If this is the case, consider specialist referral to assess eligibility for a risk reducing agent. 2. If overall lifetime risk for the development of breast cancer is 20% or higher, the patient may qualify for future screening with alternating mammogram and breast MRI. Electronically signed and approved by: Michael Miramontes DO
== END | disposition home or self-care (01) ==
LOC: RADMAMWWP 06:57
PROVIDERS: ATTEND Family Medicine
DX: Z12.31 Encounter for screening mammogram for malignant neoplasm of breast (principal); Z78.0 Asymptomatic menopausal state; Z80.3 Family history of malignant neoplasm of breast
CPT/HCPCS: 77063; 77067

== ENCOUNTER → 2023-02-11 | Outpatient (CLI) | payer OTHER ==
--- NOTE | 2023-02-11 12:09 | CT ---
EXAMINATION TYPE: CT angio chest DATE OF EXAM: 02/11/2023 10:32 AM COMPARISON: 12/16/2021 HISTORY: Thoracic Aneurysm CT DLP: 372.10 mGycm Automated exposure control for dose reduction was used. CONTRAST: CTA scan of the thorax is performed without and with IV Contrast, patient injected with 100 ml mL of Isovue 370, pulmonary embolism protocol. . FINDINGS: LUNGS: There is mild emphysematous changes with basilar atelectasis. There is a 4 mm nodule at the ri t lung base MEDIASTINUM: There is satisfactory enhancement of the pulmonary artery and its branches, there is no CT evidence for pulmonary embolism. There are no greater than 1 cm hilar or mediastinal lymph nodes. Small pericardial effusion is seen. Aorta: Aorta measures a maximal dimension of 3.7 cm at the level of the aortic root. No diagnostic ev idence of aortic aneurysm. No significant atherosclerotic changes. OTHER: Small hypoattenuating lesions in the liver too small to characterize but most likely related to simple cysts. Findings stable from prior exam. Hypodense lesions in the kidneys are partially incl uded in the [id number] and renal ultrasound could be obtained. Post cholecystectomy changes noted. Hypertrophic and degenerative changes of the spine. Small hiatal hernia.. IMPRESSION: 1. No evidence for aortic aneurysm. Aorta measures a maximum dimension of 3.7 cm at the level of the aortic root. 2. Incompletely evaluated renal lesions recommend ultrasound. 3. There is a 4 mm right lower lobe pulmonary nodule likely benign. Recommend 12 month follow-up CT s can stability.
== END | disposition home or self-care (01) ==
LOC: RADCTMAIN 09:22
PROVIDERS: ATTEND Internal Medicine Interventional Cardiology
DX: I71.10 Thoracic aortic aneurysm, ruptured, unspecified (principal); R91.1 Solitary pulmonary nodule; N28.9 Disorder of kidney and ureter, unspecified
CPT/HCPCS: 71275; Q9967

== ENCOUNTER 2023-02-14 05:46 | Emergency (ER) | payer OTHER ==
[2023-02-14 06:15] VITALS: BP 140/91; PULSE 87; RESP 18; TEMP 98.5
[2023-02-14] MEDS ORDERED: AMOXIC-POT CLAV 875-125MG 1 EACH TAB PO STA (06:40)
--- NOTE | 2023-02-14 06:42 | ED ---
General Adult HPI - General Chief complaint: ENT Stated complaint: ENT Time Seen by Provider: 02/14/23 06:03 Source: patient, RN notes reviewed Mode of arrival: ambulatory Limitations: no limitations - History of Present Illness Initial comments: 57-year-old female with past medical history significant for diabetes mellitus presents to the emergency department with a chief complaint of right ear pain. Patient reports right ear pain and pressure that radiates into her jaw for 4 days. She is not taken any antibiotics. She denies any known fever chills, cough, sore throat, headache. She does report having thick yellow sinus congestion. Denies recent sick contacts. - Related Data Home Medications Medication Instructions Recorded Confirmed Aspirin [Adult Low Dose Aspirin EC] 81 mg PO DAILY 05/16/18 02/12/23 Loratadine [Claritin] 10 mg PO DAILY 05/16/18 02/12/23 Montelukast [Singulair] 10 mg PO DAILY 05/16/18 02/12/23 Cholecalciferol (Vitamin D3) 2 tab PO DAILY 02/22/19 02/12/23 [Vitamin D3] Dulaglutide [Trulicity] 4.5 mg SQ WEEKLY 02/12/23 02/12/23 Hydrocortisone [Anusol-Hc] 1 applic RECTAL TID PRN 02/12/23 02/12/23 Wellbutrin(Unknown) 1 tab PO DAILY 02/12/23 02/12/23 metFORMIN HCL ER [Glucophage XR] 750 mg PO QAM 02/12/23 02/12/23 Previous Rx's Medication Instructions Recorded Amoxic-Pot Clav 875-125Mg 1 tab PO Q12HR #20 tab 02/14/23 [Augmentin 875-125] predniSONE 50 mg PO DAILY #5 tab 02/14/23 Allergies Allergy/AdvReac Type Severity Reaction Status Date / Time codeine Allergy Rash/Hives Verified 02/14/23 05:56 Review of Systems ROS Statement: Those systems with pertinent positive or pertinent negative responses have been documented in the HPI. ROS Other: All systems not noted in ROS Statement are negative. Past Medical History Past Medical History: Diabetes Mellitus, Deep Vein Thrombosis (DVT), Hyperlipidemia Additional Past Medical History / Comment(s): diet controlled DM, right BBB, allergies, fx L1 transvere july 2017July , covid 04/2021 History of Any Multi-Drug Resistant Organisms: MRSA Date of last positivie culture/infection: 12/30/2015 MDRO Source:: left axilla Past Surgical History: Bladder Surgery, Cholecystectomy, Hernia Repair, Hysterectomy, Uterine Ablation Additional Past Surgical History / Comment(s): bladder suspension with peritenium correction, vein surgery on legs, hemmorhoid surg, left axilla surgery for MRSA-2016, pevlic floor reconstruction, hyterectomy, bladder suspension, and rectocele Past Anesthesia/Blood Transfusion Reactions: No Reported Reaction Past Psychological History: Anxiety, Depression Smoking Status: Former smoker Past Alcohol Use History: None Reported Past Drug Use History: None Reported - Past Family History Father Additional Family Medical History / Comment(s): passed at 47 with enlarged heart secondary to drug abuse General Exam - General Exam Comments Initial Comments: General: Alert, in no acute distress Head: atraumatic normocephalic. Eyes PERRL, EOMI intact, mucous membranes moist, right TM bulging with erythema. Respiratory: Lungs clear to auscultation bilaterally Cardiovascular: Heart rate regular rate and rhythm Abdominal: Soft without guarding or rebound Extremities: Normal inspection with full range of motion and normal capillary refill Neuroogic: alert and oriented 3, CN II-XII intact, able to ambulate with steady gait Skin: warm dry and intact with normal color Limitations: no limitations Course Vital Signs 02/14/23 05:56 Temperature 98.5 F Pulse Rate 87 Respiratory 18 Rate Blood Pressure 140/91 O2 Sat by Pulse 98 Oximetry Medical Decision Making - Medical Decision Making Was pt. sent in by a medical professional or institution (, PA, REVERSE UNIT OPERATOR, urgent care, hospital, or intermediate...) When possible be specific @ -[No] Did you speak to anyone other than the patient for history (EMS, parent, family, police, friend...)? What history was obtained from this source @ -[No] Did you review nursing and triage notes (agree or disagree)? Why? @ -[I reviewed and agree with nursing and triage notes] Were old charts reviewed (outside hosp., previous admission, EMS record, old EKG, old radiological studies, urgent care reports/EKG's, intermediate records)? Report findings @ -[No old charts were reviewed] Differential Diagnosis (chest pain, altered mental status, abdominal pain women, abdominal pain men, vaginal bleeding, weakness, fever, dyspnea, syncope, headache, dizziness, GI bleed, back pain, seizure, CVA, palpatations, mental health, musculoskeletal)? @ -[not applicable] EKG interpreted by me (3pts min.). @ -[As above] X-rays interpreted by me (1pt min.). @ -[None done] CT interpreted by me (1pt min.). @ -[None done] U/S interpreted by me (1pt. min.). @ -[None done] What testing was considered but not performed or refused? (CT, X-rays, U/S, labs)? Why? @ -[None] What meds were considered but not given or refused? Why? @ -[None] Did you discuss the management of the patient with other professionals (professionals i.e. , PA, REVERSE UNIT OPERATOR, lab, RT, psych nurse, social work instructor, tank car mechanic, teacher, control systems drafting officer, case management associate)? Give summary @ -[No] Was smoking cessation discussed for >3mins.? @ -[No] Was critical care preformed (if so, how long)? @ -[No] Were there social determinants of health that impacted care today? How? (Homelessness, low income, unemployed, alcoholism, drug addiction, transportation, low edu. Level, literacy, decrease access to med. care, [facility], rehab)? @ -[No] Was there de-escalation of care discussed even if they declined (Discuss DNR or withdrawal of care, Hospice)? DNR status @ -[No] What co-morbidities impacted this encounter? (DM, HTN, Smoking, COPD, CAD, Cancer, CVA, ARF, Chemo, Hep., AIDS, mental health diagnosis, sleep apnea, morbid obesity)? @ -[None] Was patient admitted / discharged? Hospital course, mention meds given and route, prescriptions, significant lab abnormalities, going to OR and other pertinent info. @ -Discharged. This is a pleasant 57-year-old female who presents the emergency department with right ear pain. Patient had a thorough history and physical exam performed. Right TM erythematous and bulging. Patient provided with Augmentin and Steroid. Return precautions discussed. Patient discharged in stable condition. Case discussed with Dr. Hall [facility] who agrees with the care Undiagnosed new problem with uncertain prognosis? @ -[No] Drug Therapy requiring intensive monitoring for toxicity (Heparin, Nitro, Insulin, Cardizem)? @ -[No] Were any procedures done? @ -[No] Diagnosis/symptom? @ -Acute Otitis Media Acute, or Chronic, or Acute on Chronic? @ -Acute Uncomplicated (without systemic symptoms) or Complicated (systemic symptoms)? @ -Uncomplicated Side effects of treatment? @ -[No] Exacerbation, Progression, or Severe Exacerbation? @ -[No] Poses a threat to life or bodily function? How? (Chest pain, [place], [place], pneumonia, PE, COPD, DKA, ARF, appy, cholecystitis, CVA, Diverticulitis, Homicidal, Suicidal, threat to staff... and all critical care pts) @ -Low likelihood Disposition Clinical Impression: Otitis media Disposition: HOME SELF-CARE Condition: Stable Instructions (If sedation given, give patient instructions): Earache (ED) Prescriptions: Amoxic-Pot Clav 875-125Mg [Augmentin 875-125] 1 tab PO Q12HR #20 tab predniSONE 50 mg PO DAILY #5 tab Is patient prescribed a controlled substance at d/c from ED?: No Referrals: Wili Erickson MD [Primary Care Provider] - 1-2 days Time of Disposition: 06:41
== END 2023-02-14 06:48 | disposition home or self-care (01) ==
LOC: EC 05:46
DX: H66.91 Otitis media, unspecified, right ear (principal); E11.9 Type 2 diabetes mellitus without complications; F41.9 Anxiety disorder, unspecified; F32.A Depression, unspecified; Z79.84 Long term (current) use of oral hypoglycemic drugs; Z79.82 Long term (current) use of aspirin; Z79.899 Other long term (current) drug therapy; Z88.5 Allergy status to narcotic agent
CPT/HCPCS: 99283

== ENCOUNTER → 2023-02-17 | Day surgery (SDC) | payer OTHER ==
[~2023-02-17] MED LIST: LACTATED RINGERS 1,000 ML IV SCH; LIDOCAINE 1% (10MG/ML) FOR IV START INTRADERMA PRN; MIDAZOLAM 2 MG/2 ML VIAL ONE; PROPOFOL 10 MG/ML 20 ML VIAL IV ONE; fentaNYL (PF) 50 MCG/ML 2 ML AMP ONE
[2023-02-17 09:19] LABS: Glucose,Whole Blood 135 mg/dL (70-110)
--- NOTE | 2023-02-17 09:29 | P.GSHP ---
History of Present Illness H&P Date: 02/17/23 Chief Complaint: Rectal bleeding 57-year-old female here for colonoscopy. Last colonoscopy 9 years ago. Intermittent complaints of hemorrhoidal pain. Had a hemorrhoidal thrombosis earlier this year. Past Medical History Past Medical History: Diabetes Mellitus, Deep Vein Thrombosis (DVT), Hyperlipidemia Additional Past Medical History / Comment(s): diet controlled DM, right BBB, allergies, fx L1 transvere july 2017July , covid 04/2021 History of Any Multi-Drug Resistant Organisms: MRSA Date of last positivie culture/infection: 12/30/2015 MDRO Source:: left axilla Past Surgical History: Bladder Surgery, Cholecystectomy, Hernia Repair, Hysterectomy, Uterine Ablation Additional Past Surgical History / Comment(s): bladder suspension with peritenium correction, vein surgery on legs, hemmorhoid surg, left axilla surgery for MRSA-2015, pevlic floor reconstruction, hyterectomy, bladder suspension, and rectocele Past Anesthesia/Blood Transfusion Reactions: No Reported Reaction Additional Past Anesthesia/Blood Transfusion Reaction / Comment(s): severe hypotension w/ spinal Past Psychological History: Anxiety, Depression Smoking Status: Former smoker Past Alcohol Use History: None Reported Past Drug Use History: None Reported - Past Family History Father Additional Family Medical History / Comment(s): passed at 47 with enlarged heart secondary to drug abuse Medications and Allergies Home Medications Medication Instructions Recorded Confirmed Type Aspirin [Adult Low Dose Aspirin EC] 81 mg PO DAILY 05/16/18 02/17/23 History Loratadine [Claritin] 10 mg PO DAILY 05/16/18 02/17/23 History Montelukast [Singulair] 10 mg PO DAILY 05/16/18 02/17/23 History Cholecalciferol (Vitamin D3) 2 tab PO DAILY 02/22/19 02/17/23 History [Vitamin D3] Dulaglutide [Trulicity] 4.5 mg SQ WEEKLY 02/12/23 02/17/23 History Hydrocortisone [Anusol-Hc] 1 applic RECTAL TID PRN 02/12/23 02/17/23 History Wellbutrin(Unknown) 1 tab PO DAILY 02/12/23 02/17/23 History metFORMIN HCL ER [Glucophage XR] 750 mg PO QAM 02/12/23 02/17/23 History Amoxic-Pot Clav 875-125Mg 1 tab PO Q12HR #20 tab 02/14/23 02/17/23 Rx [Augmentin 870-125] predniSONE 50 mg PO DAILY #5 tab 02/14/23 02/17/23 Rx Allergies Allergy/AdvReac Type Severity Reaction Status Date / Time codeine Allergy Rash/Hives Verified 02/17/23 09:08 Surgical - Exam Vital Signs Temp Pulse Resp BP Pulse Ox 97.9 F 73 16 123/77 97 02/17/23 09:20 02/17/23 09:20 02/17/23 09:20 02/17/23 09:20 02/17/23 09:20 Physical exam: General: Well-developed, well-nourished HEENT: Normocephalic, sclerae nonicteric Abdomen: Nontender, nondistended Extremities: No edema Neuro: Alert and oriented Results - Labs Abnormal Lab Results - Last 24 Hours (Table) 02/17/23 Range/Units 09:16 POC Glucose (mg/dL) 135 H (70-110) mg/dL Assessment and Plan (1) Rectal bleeding Narrative/Plan: Will proceed with colonoscopy at this time. Current Visit: Yes Status: Acute Code(s): K62.5 - HEMORRHAGE OF ANUS AND RECTUM SNOMED Code(s): 66863299
[2023-02-17 09:37] VITALS: RESP 16; TEMP 97.9
--- NOTE | 2023-02-17 09:49 | P.PCN ---
Date of Procedure: 02/17/23 Procedure(s) Performed: PREOPERATIVE DIAGNOSIS: Hemorrhoids POSTOPERATIVE DIAGNOSIS: Mild diverticulosis, small ascending colon polyp PROCEDURE: Colonoscopy with snare polypectomy ANESTHESIA: MAC SURGEON: Nadeem Lopez M.D. SPECIMENS: Polyp ENDOSCOPIC PROCEDURE: The patient was placed on the endoscopy table in the left decubitus position. The Olympus colonoscope was inserted into the anus and passed under direct visualization to the base of the cecum. The appendiceal orifice was visualized. From that point the scope was slowly withdrawn inspecting all surfaces carefully. There were no neoplastic inflammatory or polypoid lesions throughout the cecum. In the ascending colon a small polyp was seen and removed using snare with cautery technique. The remainder of the ascending transverse descending sigmoid and rectum appeared normal. There was mild left-sided diverticulosis. At the anus the patient had small internal hemorrhoids. These were quite small and did not appear to be symptomatic at this time. The patient was taken to the recovery room in stable condition per anesthesia guidelines. RECOMMENDATIONS: Await biopsy results. Resume diet.
[2023-02-17 10:09] LABS: Glucose,Whole Blood 139 mg/dL (70-110)
[2023-02-17 10:36] VITALS: BP 125/78; PULSE 52
== END ==
LOC: ORWHC2ENDO 08:48
PROVIDERS: ATTEND Surgery
DX: D12.2 Benign neoplasm of ascending colon (principal); K64.8 Other hemorrhoids; K57.30 Diverticulosis of large intestine without perforation or abscess without bleeding; E11.9 Type 2 diabetes mellitus without complications; E78.5 Hyperlipidemia, unspecified; Z86.718 Personal history of other venous thrombosis and embolism; Z86.16 Personal history of COVID-19; Z90.49 Acquired absence of other specified parts of digestive tract; Z90.710 Acquired absence of both cervix and uterus; Z98.890 Other specified postprocedural states; Z87.891 Personal history of nicotine dependence; Z79.899 Other long term (current) drug therapy; Z79.52 Long term (current) use of systemic steroids; Z88.5 Allergy status to narcotic agent
CPT/HCPCS: 88305; 45385; J2250; J3010; J2704

== ENCOUNTER 2023-07-16 05:40 | Emergency (ER) | payer OTHER ==
--- NOTE | 2023-07-16 06:19 | ED ---
Chest Pain HPI - General Chief Complaint: Chest Pain Stated Complaint: chest pain heart palpitations Time Seen by Provider: 07/16/23 06:00 Source: patient, RN notes reviewed Mode of arrival: ambulatory Limitations: no limitations - History of Present Illness Initial Comments: 57-year-old female presents emergency department with chief complaint of chest pain, abdominal pain. Patient states she has not felt well since last week. Patient states she came back from [place] started developing URI symptoms was seen at PCP had some testing and was sent home with a viral illness. Patient states that has worsened she states she has now developed some epigastric, chest pain along with left lower quadrant abdominal pain. Patient states she has been told she has diverticulosis. Patient also has an aortic aneurysm which is monitored every 6 months she states its less than 4 cm. Patient denies any back pain denies any significant chest pain states that just some achiness when she coughs. - Related Data Home Medications Medication Instructions Recorded Confirmed Loratadine [Claritin] 10 mg PO DAILY 05/16/18 02/17/23 Montelukast [Singulair] 10 mg PO DAILY 05/16/18 02/17/23 Atorvastatin [Lipitor] 20 mg PO DAILY 07/16/23 07/16/23 Empagliflozin/Metformin HCl 1 tab PO DAILY 07/16/23 07/16/23 [Synjardy Xr 10-1,000 mg Tablet] Tirzepatide [Mounjaro] 7.5 mg SQ FR 07/16/23 07/16/23 buPROPion XL [Wellbutrin XL] 300 mg PO DAILY 07/16/23 07/16/23 Previous Rx's Medication Instructions Recorded Amoxic-Pot Clav 875-125Mg 1 tab PO Q12HR #20 tab 07/16/23 [Augmentin 875-125] Allergies Allergy/AdvReac Type Severity Reaction Status Date / Time codeine Allergy Rash/Hives Verified 07/16/23 08:50 Review of Systems ROS Statement: Those systems with pertinent positive or pertinent negative responses have been documented in the HPI. ROS Other: All systems not noted in ROS Statement are negative. EKG Findings - EKG Comments: EKG Findings:: EKG performed at 6: 19 sinus rhythm with a rate of 83 SC 131 QRS 149 QT/QTc 407/447 as noted right bundle - EKG Results: EKG: interpreted by GENARO Past Medical History Past Medical History: Diabetes Mellitus, Deep Vein Thrombosis (DVT), Hyperlipidemia Additional Past Medical History / Comment(s): diet controlled DM, right BBB, allergies, fx L1 transvere july 2017July , covid 04/2021, Aortic Aneurysm History of Any Multi-Drug Resistant Organisms: MRSA Date of last positivie culture/infection: 12/30/2015 MDRO Source:: left axilla Past Surgical History: Bladder Surgery, Cholecystectomy, Hernia Repair, Hysterectomy, Uterine Ablation Additional Past Surgical History / Comment(s): bladder suspension with peritenium correction, vein surgery on legs, hemmorhoid surg, left axilla surgery for MRSA-2015, pevlic floor reconstruction, hyterectomy, bladder suspension, and rectocele Past Anesthesia/Blood Transfusion Reactions: No Reported Reaction Past Psychological History: Anxiety, Depression Smoking Status: Former smoker Past Alcohol Use History: None Reported Past Drug Use History: None Reported - Past Family History Father Additional Family Medical History / Comment(s): passed at 47 with enlarged heart secondary to drug abuse General Exam Limitations: no limitations General appearance: alert, in no apparent distress Head exam: Present: atraumatic, normocephalic, normal inspection Eye exam: Present: normal appearance, PERRL, EOMI. Absent: scleral icterus, conjunctival injection, periorbital swelling ENT exam: Present: normal exam, normal oropharynx, mucous membranes moist Neck exam: Present: normal inspection, full ROM. Absent: tenderness, meningismus, lymphadenopathy Respiratory exam: Present: normal lung sounds bilaterally. Absent: respiratory distress, wheezes, rales, rhonchi, stridor Cardiovascular Exam: Present: regular rate, normal rhythm, normal heart sounds. Absent: systolic murmur, diastolic murmur, rubs, gallop, clicks GI/Abdominal exam: Present: soft, tenderness (Left lower quadrant), normal bowel sounds. Absent: distended, guarding, rebound, rigid Back exam: Absent: CVA tenderness (R), CVA tenderness (L) Neurological exam: Present: alert Skin exam: Present: warm, dry, intact, normal color. Absent: rash Course Vital Signs 07/16/23 07/16/23 07/16/23 05:58 06:06 06:08 Temperature 98.7 F Pulse Rate 88 Pulse Rate [ 92 Pulse Oximetery ] Respiratory 16 19 Rate Blood Pressure 146/97 O2 Sat by Pulse 97 Oximetry 07/16/23 07/16/23 06:48 08:21 Temperature 97.6 F Pulse Rate 79 75 Pulse Rate [ Pulse Oximetery ] Respiratory 17 18 Rate Blood Pressure 124/88 107/71 O2 Sat by Pulse 97 99 Oximetry Chest Pain MDM - MDM Was pt. sent in by a medical professional or institution (JEFF Miramontes, SR. DIRECTOR PRODUCT MANAGEMENT, urgent care, hospital, or longterm...) When possible be specific @ -No Did you speak to anyone other than the patient for history (EMS, parent, family, police, friend...)? What history was obtained from this source @ -No Did you review nursing and triage notes (agree or disagree)? Why? @ -I reviewed and agree with nursing and triage notes Were old charts reviewed (outside hosp., previous admission, EMS record, old EKG, old radiological studies, urgent care reports/EKG's, longterm records)? Report findings @ -No old charts were reviewed Differential Diagnosis (chest pain, altered mental status, abdominal pain women, abdominal pain men, vaginal bleeding, weakness, fever, dyspnea, syncope, headache, dizziness, GI bleed, back pain, seizure, CVA, palpatations, mental health, musculoskeletal)? @ -Differential Abdominal Pain Women: Appendicitis, Cholecystitis, diverticulosis, ischemic bowel, pancreatitis, he patitis, UTI, gastroenteritis, AAA, incarcerated hernia, bowel obstruction, constipation, inflammatory bowel, hepatitis, peptic ulcer disease, splenic infarction, perforated viscus, vulvitis, ovarian torsion, PID, kidney stone, placenta abruption, this is not meant to be an all-inclusive list EKG interpreted by me (3pts min.). @ -As above X-rays interpreted by me (1pt min.). @ -Chest x-ray shows no acute cardiopulmonary process CT interpreted by me (1pt min.). @ -CT abdomen pelvis shows no acute process there is postsurgical cholecystectomy changes U/S interpreted by me (1pt. min.). @ -None done What testing was considered but not performed or refused? (CT, X-rays, U/S, labs)? Why? @ -None What meds were considered but not given or refused? Why? @ -None Did you discuss the management of the patient with other professionals (professionals i.e. Dr., PA, SR. DIRECTOR PRODUCT MANAGEMENT, lab, RT, psych nurse, social media intern, saturator operator, teacher, school resource officer, gearcase assembler)? Give summary @ -No Was smoking cessation discussed for >3mins.? @ -No Was critical care preformed (if so, how long)? @ -No Were there social determinants of health that impacted care today? How? (Homelessness, low income, unemployed, alcoholism, drug addiction, transportation, low edu. Level, literacy, decrease access to med. care, fdc, rehab)? @ -No Was there de-escalation of care discussed even if they declined (Discuss DNR or withdrawal of care, Hospice)? DNR status @ -No What co-morbidities impacted this encounter? (DM, HTN, Smoking, COPD, CAD, Cancer, CVA, ARF, Chemo, Hep., AIDS, mental health diagnosis, sleep apnea, morbid obesity)? @ -[Hyperlipidemia Was patient admitted / discharged? Hospital course, mention meds given and route, prescriptions, significant lab abnormalities, going to OR and other pertinent info. @ -Discharged I did recommend the patient to be admitted for cardiac rule out given her chest pain. She states this is related to her URI symptoms. Patient is also complaining of left lower quadrant abdominal pain without significant findings I do have some concerns that there is early diverticulitis. Patient was placed on Augmentin patient on clear liquid diet she understands the risk of leaving she states she will follow-up with her mastic sprayer Dr. Vera and her PCP Dr. Erickson. Undiagnosed new problem with uncertain prognosis? @ -No Drug Therapy requiring intensive monitoring for toxicity (Heparin, Nitro, Insulin, Cardizem)? @ -No Were any procedures done? @ -No Diagnosis/symptom? @ -Atypical chest pain, tracheobronchitis, abdominal pain, diverticulosis Acute, or Chronic, or Acute on Chronic? @ -Acute Uncomplicated (without systemic symptoms) or Complicated (systemic symptoms)? @ -Uncomplicated Side effects of treatment? @ -No Exacerbation, Progression, or Severe Exacerbation? @ -No Poses a threat to life or bodily function? How? (Chest pain, [place], [place], pneumonia, PE, COPD, DKA, ARF, appy, cholecystitis, CVA, Diverticulitis, Homicidal, Suicidal, threat to staff... and all critical care pts) @ -No Disposition Clinical Impression: Atypical chest pain, Tracheobronchitis, Abdominal pain, Diverticulosis Disposition: HOME SELF-CARE Condition: Stable Instructions (If sedation given, give patient instructions): Abdominal Pain (ED) Additional Instructions: Please return to the Emergency Department if symptoms worsen or any other concerns. Prescriptions: Amoxic-Pot Clav 875-125Mg [Augmentin 875-125] 1 tab PO Q12HR #20 tab Is patient prescribed a controlled substance at d/c from ED?: No Referrals: Wili Erickson MD [Primary Care Provider] - 1-2 days Mauro Govea MD [STAFF PHYSICIAN] - 1-2 days Time of Disposition: 08:57
[2023-07-16] MEDS: ASPIRIN 81 MG PO STA (06:23)
[2023-07-16 06:55] LABS: ALT 14 U/L (4-34); AST 20 U/L (14-36); African American GFR (CKD) >90 (>60 ml/min/1.73 sqM); Albumin 4.1 g/dL (3.5-5.0); Alkaline Phosphatase 88 U/L (38-126); Anion Gap 7 mmol/L; Blood Urea Nitrogen 24 mg/dL (7-17); Calcium 9.5 mg/dL (8.4-10.2); Carbon Dioxide 25 mmol/L (22-30); Chloride 106 mmol/L (98-107); Glucose 144 mg/dL (74-99); Lipase 511 U/L (23-300); Magnesium 1.6 mg/dL (1.6-2.3); Non-African American GFR(CKD) >90 (>60 ml/min/1.73 sqM); Potassium 4.1 mmol/L (3.5-5.1); Sodium 138 mmol/L (137-145); Total Bilirubin 0.4 mg/dL (0.2-1.3); Total Protein 6.7 g/dL (6.3-8.2)
[2023-07-16 07:02] LABS: NT-Pro-B-Type Natriuretic Pept 78 pg/mL
[2023-07-16 07:08] LABS: Basophils # (A) 0.1 k/uL (0-0.2); Basophils % (A) 1 %; Eosinophils # (A) 0.2 k/uL (0-0.7); Eosinophils % (A) 2 %; HCT 40.5 % (34.0-46.0); HGB 13.1 gm/dL (11.4-16.0); Lymphocytes # (A) 1.9 k/uL (1.0-4.8); Lymphocytes % (A) 27 %; MCH 31.5 pg (25.0-35.0); MCHC 32.3 g/dL (31.0-37.0); MCV 97.4 fL (80.0-100.0); Mean Platelet Volume 8.5; Monocytes # (A) 0.6 k/uL (0-1.0); Monocytes % (A) 9 %; Neutrophils % (A) 58 %; Platelet Count 269 k/uL (150-450); RBC 4.16 m/uL (3.80-5.40); RDW 13.1 % (11.5-15.5); WBC 6.9 k/uL (3.8-10.6)
[2023-07-16 07:20] LABS: INR 0.8 (<1.2); Partial Thromboplastin Time 24.1 sec (22.0-30.0); Prothrombin Time 9.5 sec (10.0-12.5)
--- NOTE | 2023-07-16 07:24 | XR ---
EXAMINATION TYPE: XR chest 2V DATE OF EXAM: 07/16/2023 6:33 AM CLINICAL INDICATION:Female, 57 years old with history of Chest Pain; [facility] COMPARISON: Chest radiographs from 06/07/2018 TECHNIQUE: XR chest 2V Frontal and lateral views of the chest. FINDINGS: Lungs/Pleura: There is no evidence of pleural effusion, focal consolidation, or pneumothorax. Pulmonary vascularity: Unremarkable. Heart/mediastinum: Cardiomediastinal silhouette is unremarkable. Musculoskeletal: No acute osseous pathology. Other findings: None IMPRESSION: No acute cardiopulmonary disease/process.
[2023-07-16 08:32] VITALS: RESP 18
--- NOTE | 2023-07-16 08:45 | CT ---
EXAMINATION TYPE: CT abdomen pelvis w con CT DLP: 684.8 mGycm, Automated exposure control for dose reduction was used. DATE OF EXAM: 07/16/2023 8:06 AM COMPARISON: None. CLINICAL INDICATION:Female, 57 years old with history of LLQ pain; LLQ PAIN TECHNIQUE: Axial CT of the abdomen and pelvis. Sagittal and coronal reformats were created on a [employer] workstation. Contrast used:100 ML mL of Isovue 370 with IV Contrast, (none if empty) Oral contrast used: without Oral Contrast (none if empty) FINDINGS: LOWER CHEST: Mild cardiomegaly. Bibasilar dependent subsegmental atelectasis. ABDOMEN LIVER: Multiple hypodensities throughout the liver, some too small to characterize, but most likely c ysts or hemangiomas. GALLBLADDER AND BILE DUCTS: Gallbladder not seen, likely surgically absent, there is a radiodensity s uggesting surgical clip near the boo hepatis. There is mild to moderate intrahepatic and extrahepat ic biliary ductal dilatation. The CBD measures up to 9 mm, and distally near the duodenum is not well seen; the possibility of debris or isodense cholelithiasis is considered. PANCREAS: Pancreatic duct is visible but not grossly enlarged. Pancreas otherwise shows no significan t abnormality. SPLEEN: Unremarkable. ADRENAL GLANDS: Unremarkable. KIDNEYS AND URETERS: Kidneys enhance symmetrically. No evidence of hydronephrosis or visible renal ca lculus. The ureters are unremarkable. Several small bilateral renal hypodensities with the appearance of cysts. PELVIS BLADDER: Unremarkable REPRODUCTIVE: Posthysterectomy. No pelvic mass suggested. ABDOMEN & PELVIS STOMACH AND BOWEL: Stomach and duodenum are nondistended. There is no evidence of bowel obstruction. The appendix appears within normal limits. There is mild fatty infiltration of the ileocecal valve. M ild to moderate stool throughout colon without focal acute abnormality. PERITONEUM/RETROPERITONEUM: No evidence of pneumoperitoneum or free fluid. VASCULATURE: Mild atherosclerotic calcifications are present throughout the abdominal aorta and its b ranches. No evidence of aortic aneurysm. LYMPH NODES: No enlarged nodes by CT criteria. Relatively low-density 1.5 cm nodular focus seen near the internal iliac artery on the left image 60, could relate to lymphatic tissue or ovarian cyst/foll icle. SOFT TISSUE/ABDOMINAL WALL: Mild body wall edema. No bowel-containing hernias. Small fat containing u mbilical region hernia. MUSCULOSKELETAL: No acute osseous abnormalities. Mild disc degeneration changes are present throughou t the thoracolumbar spine. IMPRESSION: 1. No acute abnormality demonstrated to explain the patient's symptoms. 2. Status post cholecystectomy. Dilatation of the biliary tree may be due at least in part to cholec ystectomy status, however the possibility of debris or isodense choledocholithiasis distally is consi dered. Correlate with LFTs. 3. Multiple hypodense lesions in the liver and kidneys, likely cysts and/or hepatic hemangiomas.
[2023-07-16 09:43] VITALS: BP 128/93; PULSE 78; TEMP 97.8
== END 2023-07-16 09:08 | disposition home or self-care (01) ==
LOC: EC 05:40
DX: J40 Bronchitis, not specified as acute or chronic (principal); K57.90 Diverticulosis of intestine, part unspecified, without perforation or abscess without bleeding; I45.10 Unspecified right bundle-branch block; Z87.891 Personal history of nicotine dependence; Z88.5 Allergy status to narcotic agent
CPT/HCPCS: 36415; 93005; 85379; 83880; 80053; 83605; 83690; 83735; 84484; 85025; 85610; 85730; 87636; 71046; 74177; 99285; Q9967

== ENCOUNTER → 2024-01-20 | Outpatient (CLI) | payer BC ==
--- NOTE | 2024-01-20 17:51 | US ---
LOWER EXTREMITY VENOUS INSUFFICIENCY CLINICAL INDICATION: Female, 58 years old with history of E11.65 TYPE 2 DIABETES MELLITUS WITH H,I87. 2 VENOUS INSUFFIC; Hx of bilateral vein strippings SIDE PERFORMED: Bilateral 1) Color flow is present and patency is documented in the following vessels. No DVT or SVT is noted . Common Femoral Vein Deep Femoral Vein Femoral Vein Popliteal Vein Proximal Calf Veins Greater Saph Vein Upper Small Saph Vein 2) There is venous reflux noted at the following venous levels: Right: GSV, prox fem vein, mid fem vein, Left: possible GSV and CFV? IMPRESSION: Reflux as noted above. [facility], , 01/20/2024 5:48 PM
--- NOTE | 2024-01-20 18:01 | US ---
EXAMINATION TYPE: US arterial LE single level DATE OF EXAM: 01/20/2024 8:48 AM CLINICAL INDICATION: Female, 58 years old with history of E11.65 TYPE 2 DIABETES MELLITUS WITH H,I87. 2 VENOUS INSUFFIC; Diabetic. Hx of varicose veins with pain in left leg History of: Smoker: Prev Hypertension: No Diabetic: Yes Hyperlipidemia: Yes TIA/CVA: No Previous Vascular Surgery: Multiple vein strippings bilaterally, no arterial surgeries CAD: No NM: No Vascular Ulcers: No Claudication: No Gangrene: No Right Brachial Pressure: 95 Left Brachial Pressure: 96 Ankle-Brachial Indices: Right: 1.16 Left: 1.20 (Vessel hardening > 1.4; Normal 0.9 - 1.4, Moderate 0.7 - 0.9, Severe 0.5-0.7) Toe Brachial Indices: Right: 0.71 Left: 0.82 IMPRESSION: Values are within normal limits without significant atheromatous change. [facility], , 01/20/2024 5:59 PM
--- NOTE | 2024-01-25 12:58 | MM ---
Reason for Exam: Screening (asymptomatic). Last mammogram was performed 1 year(s) and 2 month(s) ago. Patient History: Menarche at age 15. First Full-Term at age 26. Hysterectomy at age 56. Postmenopausal. Patient has history of breast feeding. Hormonal Contraceptives, from age 22 until age 26. 2013, Benign Excisional Biopsy on the right side. Maternal grandmother had breast cancer, age 70. Maternal cousin had breast cancer, age 48. Paternal aunt (gr) had colorectal cancer. Risk Values: Angelina 5 year model risk: 1.3%. NCI Lifetime model risk: 8.5%. Prior Study Comparison: 08/22/2016 Bilateral Screening Mammogram, [facility]. 11/04/2017 Bilateral Screening Mammogram, [facility]. 11/17/2017 Right Diagnostic Mammogram, [facility]. 07/05/2018 Bilateral Diagnostic Mammogram, [facility]. 09/23/2019 Bilateral Screening Mammogram, [facility]. 09/25/2020 Bilateral Screening Mammogram, [facility]. 10/11/2021 Bilateral MG screening mammo w CAD, [facility]. 10/18/2021 Bilateral MG 3D work up w/cad [facility], [facility]. 04/29/2022 Left MG diagnostic mammo LT w CAD, [facility]. 11/04/2022 Bilateral MG 3D screening mammo w/cad, [facility]. Tissue Density: The breasts are heterogeneously dense, which may obscure small masses. Findings: Analyzed By CAD. There is no suspicious group of microcalcifications or new suspicious mass in either breast. Overall Assessment: Negative, BI-RAD 1 Management: Screening Mammogram of both breasts in 1 year. . Patient should continue monthly self-breast exams. A clinical breast exam by your physician is recommended on an annual basis. This exam should not preclude additional follow-up of suspicious palpable abnormalities. Note on Angelina scores and lifetime risk: 1. A Angelina score greater than 3% is considered moderate risk. If this is the case, consider specialist referral to assess eligibility for a risk reducing agent. 2. If overall lifetime risk for the development of breast cancer is 20% or higher, the patient may qualify for future screening with alternating mammogram and breast MRI. [facility], , 01/25/2024 12:55 PM. Electronically signed and approved by: Jacob Ponce M.D. Radiologis
== END | disposition home or self-care (01) ==
LOC: RADMAMWWP 07:43
PROVIDERS: ATTEND Family Medicine
DX: Z12.31 Encounter for screening mammogram for malignant neoplasm of breast (principal); R92.333 Mammographic heterogeneous density, bilateral breasts; E11.65 Type 2 diabetes mellitus with hyperglycemia; I87.2 Venous insufficiency (chronic) (peripheral); R91.1 Solitary pulmonary nodule; E11.9 Type 2 diabetes mellitus without complications; E78.5 Hyperlipidemia, unspecified; Z78.0 Asymptomatic menopausal state; Z80.3 Family history of malignant neoplasm of breast; Z87.891 Personal history of nicotine dependence; Z80.0 Family history of malignant neoplasm of digestive organs
CPT/HCPCS: 77063; 77067; 93922; 93970

== ENCOUNTER → 2024-02-25 | Outpatient (CLI) | payer BC ==
[2024-02-25 11:04] LABS: African American GFR (CKD) >90 (>60 ml/min/1.73 sqM); Blood Urea Nitrogen 25 mg/dL (7-17); Non-African American GFR(CKD) 85 (>60 ml/min/1.73 sqM)
--- NOTE | 2024-02-25 12:37 | CT ---
EXAMINATION TYPE: CT chest w con DATE OF EXAM: 02/25/2024 COMPARISON: 02/11/2023 CLINICAL INDICATION: Female, 58 years old with history of R91.1 SOLITARY PULMONARY NODULE E11.69 TYPE 2 DIAB; [facility], lung nodule TECHNIQUE: CT scan of the chest is performed with IV Contrast, patient injected with 88 mL of Isovue 300. MIP I mages are created on CT scanner and reviewed. 3D reconstructed images are created on an independent w orkstation and reviewed. CT DLP: 177.1 mGycm Automated exposure control for dose reduction was used. FINDINGS: LUNGS: The lungs are grossly clear, there is no concerning parenchymal mass or nodule identified. T here is no pleural effusion or pneumothorax seen. There is no abnormal airspace consolidation or abn ormal interstitial density. The tracheobronchial tree is patent. MEDIASTINUM: There are no greater than 1 cm hilar or mediastinal lymph nodes. No pericardial effusi on is seen. Multiple scattered hypodensities are seen within the liver too small to characterize with certainty. They do appear stable compared to the prior study. IMPRESSION: 1. No suspicious pulmonary mass or nodule. 2. No acute cardiopulmonary disease. 3. No adenopathy. Follow-up recommendations for incidental pulmonary nodules are per [employer]?s [place] or [place]. [facility], , 02/25/2024 12:35 PM
== END | disposition home or self-care (01) ==
LOC: RADCTMAIN 10:24
PROVIDERS: ATTEND Family Medicine
DX: R91.1 Solitary pulmonary nodule (principal); E11.69 Type 2 diabetes mellitus with other specified complication
CPT/HCPCS: 36415; 71260; 82565; 84520

== ENCOUNTER 2024-08-03 10:58 | Day surgery (SDC) | payer BC ==
[~2024-08-03 10:58] MED LIST changes: -LACTATED RINGERS 1,000 ML IV SCH; -LIDOCAINE 1% (10MG/ML) FOR IV START INTRADERMA PRN; -MIDAZOLAM 2 MG/2 ML VIAL ONE; -PROPOFOL 10 MG/ML 20 ML VIAL IV ONE; +Pre Op ABX Message 1 EACH MISC MISCELLANE ONE; -fentaNYL (PF) 50 MCG/ML 2 ML AMP ONE
[2024-08-03 11:43] VITALS: RESP 16; TEMP 98.8
[2024-08-03] MEDS: LACTATED RINGERS 1,000 ML IV ONE (12:24)
[2024-08-03] MEDS: LACTATED RINGERS 1,000 ML IV SCH (12:24)
[2024-08-03] MEDS: diphenhydrAMINE 50 MG/ML 1 ML VIAL IVP STA (12:25)
[2024-08-03] MEDS: DEXAMETHASONE SOD PHOSPHATE 4 MG/ML 1 ML VIAL IVP STA (12:26)
[2024-08-03] MEDS: ONDANSETRON 4 MG/2 ML VIAL IVP STA (12:26)
[2024-08-03 12:29] LABS: Basophils # (A) 0.06 10*3/uL (0.00-0.10); Basophils % (A) 1.2 %; Eosinophils # (A) 0.16 10*3/uL (0.04-0.35); Eosinophils % (A) 3.1 %; HCT 39.7 % (37.2-46.3); HGB 13.6 g/dL (12.0-15.0); Lymphocytes # (A) 1.43 10*3/uL (0.90-5.00); Lymphocytes % (A) 27.9 %; MCHC 34.3 g/dL (32.0-37.0); MCV 93.4 fL (80.0-97.0); Mean Platelet Volume 10.3 fL (9.5-12.2); Monocytes # (A) 0.34 10*3/uL (0.20-1.00); Monocytes % (A) 6.6 %; Neutrophils # (A) 3.12 10*3/uL (1.80-7.70); Neutrophils % (A) 60.8 %; Platelet Count 252 10*3/uL (140-440); RBC 4.25 10*6/uL (4.10-5.20); RDW 12.8 % (11.5-14.5); WBC 5.13 10*3/uL (4.50-10.00)
[2024-08-03 12:33] LABS: Glucose,Whole Blood 115 mg/dL (70-110)
[2024-08-03] MEDS: LIDOCAINE 1% INJ 10MG/ML (30 ML VIAL-PF) SQ ONE ×3 (12:33→13:09)
[2024-08-03 12:37] LABS: African American GFR (CKD) >90 (>60 ml/min/1.73 sqM); Anion Gap 6 mmol/L; Blood Urea Nitrogen 22 mg/dL (7-17); Calcium 9.7 mg/dL (8.4-10.2); Carbon Dioxide 28 mmol/L (22-30); Chloride 105 mmol/L (98-107); Glucose 107 mg/dL (74-99); Non-African American GFR(CKD) >90 (>60 ml/min/1.73 sqM); Potassium 4.1 mmol/L (3.5-5.1); Sodium 139 mmol/L (137-145)
[2024-08-03] MEDS ORDERED: LIDOCAINE 1% INJ 10MG/ML (20 ML MDV) ONE (12:47)
[2024-08-03] MEDS ORDERED: fentaNYL (PF) 50 MCG/ML 2 ML AMP ONE (12:47)
[2024-08-03] MEDS ORDERED: MIDAZOLAM 2 MG/2 ML VIAL ONE (12:47)
[2024-08-03] MEDS ORDERED: PROPOFOL 10 MG/ML 20 ML VIAL IV ONE (12:47)
--- NOTE | 2024-08-03 12:53 | P.HPIHPCON ---
History of Present Illness H&P Date: 08/03/24 Patient is a 58-year-old female whose had previous interventions for her lower extremity venous insufficiency and varicosities. She continues to have left lower extremity pain and swelling. Consent for Procedure: I have explained the operation/procedure to the patient, including the risks, benefits, side effects, alternative therapies (including not receiving the proposed treatment or service), the likelihood of the patient achieving his/her goals, and potential recuperation problems for the procedure/sedation/analgesia, as well as any blood products, if indicated. I also explained to the patient the risks, benefits and side effects of the alternatives, as well as the risks related to not receiving the proposed procedure, care, treatment, or services. Past Medical History Past Medical History: Diabetes Mellitus, Deep Vein Thrombosis (DVT), Hyperlipidemia Additional Past Medical History / Comment(s): Type II DM, right BBB, seasonal allergies, fx L1 transverse july 2017, covid 04/2021, Aortic Aneurysm, DVT Lt. leg History of Any Multi-Drug Resistant Organisms: MRSA Date of last positivie culture/infection: 12/30/2015 MDRO Source:: left axilla Past Surgical History: Bladder Surgery, Cholecystectomy, Hernia Repair, Hysterectomy, Uterine Ablation Additional Past Surgical History / Comment(s): vein surgery on legs, hemmorhoid surg, left axilla surgery for MRSA-2015, bladder suspension w/ pevlic floor reconstruction Past Anesthesia/Blood Transfusion Reactions: No Reported Reaction Additional Past Anesthesia/Blood Transfusion Reaction / Comment(s): hypotension w/ spinal Smoking Status: Former smoker - Past Family History Father Additional Family Medical History / Comment(s): passed at 47 with enlarged heart secondary to drug abuse Medications and Allergies Home Medications Medication Instructions Recorded Confirmed Type Loratadine [Claritin] 10 mg PO DAILY 05/16/18 08/03/24 History Montelukast [Singulair] 10 mg PO HS 05/16/18 08/03/24 History Atorvastatin [Lipitor] 20 mg PO DAILY 07/16/23 08/03/24 History Empagliflozin/Metformin HCl 1 tab PO DAILY 07/16/23 08/03/24 History [Synjardy Xr 10-1,000 mg Tablet] Tirzepatide [Mounjaro] 7.5 mg SQ FR 07/16/23 08/03/24 History buPROPion XL [Wellbutrin XL] 300 mg PO DAILY 07/16/23 08/03/24 History Aspirin [Children's Aspirin] 81 mg PO DAILY 08/01/24 08/03/24 History Allergies Allergy/AdvReac Type Severity Reaction Status Date / Time codeine Allergy Rash/Hives Verified 08/03/24 11:43 CHG Allergy Rash/Hives Uncoded 08/03/24 12:37 Surgical - Exam Vital Signs Temp Pulse Resp BP Pulse Ox 98.8 F 72 16 130/60 100 08/03/24 11:41 08/03/24 11:41 08/03/24 11:41 08/03/24 11:41 08/03/24 11:41 No acute distress resting comfortably. Heart is regular. No respiratory distress. Bilateral lower extremities warm and dry. Varicosities of her left lower extremity Results - Labs 08/03/24 12:15 08/03/24 12:15 Abnormal Lab Results - Last 24 Hours (Table) 08/03/24 08/03/24 Range/Units 12:15 12:21 BUN 22 H (7-17) mg/dL Glucose 107 H (74-99) mg/dL POC Glucose (mg/dL) 115 H (70-110) mg/dL Diabetes panel 08/03/24 Range/Units 12:15 Sodium 139 (137-145) mmol/L Potassium 4.1 (3.5-5.1) mmol/L Chloride 105 (98-107) mmol/L Carbon Dioxide 28 (22-30) mmol/L BUN 22 H (7-17) mg/dL Creatinine 0.72 (0.52-1.04) mg/dL Glucose 107 H (74-99) mg/dL Calcium 9.7 (8.4-10.2) mg/dL Calcium panel 08/03/24 Range/Units 12:15 Calcium 9.7 (8.4-10.2) mg/dL Pituitary panel 08/03/24 Range/Units 12:15 Sodium 139 (137-145) mmol/L Potassium 4.1 (3.5-5.1) mmol/L Chloride 105 (98-107) mmol/L Carbon Dioxide 28 (22-30) mmol/L BUN 22 H (7-17) mg/dL Creatinine 0.72 (0.52-1.04) mg/dL Glucose 107 H (74-99) mg/dL Calcium 9.7 (8.4-10.2) mg/dL Adrenal panel 08/03/24 Range/Units 12:15 Sodium 139 (137-145) mmol/L Potassium 4.1 (3.5-5.1) mmol/L Chloride 105 (98-107) mmol/L Carbon Dioxide 28 (22-30) mmol/L BUN 22 H (7-17) mg/dL Creatinine 0.72 (0.52-1.04) mg/dL Glucose 107 H (74-99) mg/dL Calcium 9.7 (8.4-10.2) mg/dL Assessment and Plan Assessment: Venous insufficiency Varicose veins with pain left lower extremity Plan: Plan for phlebectomy left lower extremity. Previously marked veins. Questions are answered.
[2024-08-03 14:41] VITALS: BP 118/78; PULSE 64
--- NOTE | 2024-08-03 15:21 | P.OP ---
Date of Procedure: 08/03/24 Description of Procedure: Preoperative diagnosis: Varicose veins with pain of the left lower extremity, previous venous interventions Postoperative diagnosis: Same Procedure: Stab avulsion phlebectomy 10-20 incisions Surgeon: Lita Vizcaino D.O. EBL: 25 cc IV fluids: See records Urine output: Not measured Drains: None Complications: None immediately apparent Condition: Stable to recovery Operative indication and findings: Patient is a 58-year-old female who has previously undergone bilateral lower extremity inventions for her venous insufficiency and varicose veins. She presented the office with continuing pain to her left lower extremity varicose veins. She is found to be candidate for phlebectomy. She presents here today for this. Risks and benefits were discussed. She seemed understand and was willing to proceed. Procedure in detail: Patient is brought to the operating room placed in supine position. Left lower extremities prepped and draped in usual sterile fashion. A preprocedural timeout was performed and all parties were in agreement. All areas of previously marked veins were identified. The skin was anesthetized and standard fashion and incisions were made throughout the area of previous markings. Vein hooks and hemostats were utilized for blunt phlebectomy. Hemostasis was achieved with pressure. Area was then cleansed and dressings were applied. Patient tolerated procedure well was transferred back to recovery in stable condition. Plan - Discharge Summary Discharge Rx Participant: Yes New Discharge Prescriptions: No Action Montelukast [Singulair] 10 mg PO HS Loratadine [Claritin] 10 mg PO DAILY buPROPion XL [Wellbutrin XL] 300 mg PO DAILY Empagliflozin/Metformin HCl [Synjardy Xr 10-1,000 mg Tablet] 1 tab PO DAILY Atorvastatin [Lipitor] 20 mg PO DAILY Tirzepatide [Mounjaro] 7.5 mg SQ FR Aspirin [Children's Aspirin] 81 mg PO DAILY Discharge Medication List Loratadine [Claritin] 10 mg PO DAILY 05/16/18 [History] Montelukast [Singulair] 10 mg PO HS 05/16/18 [History] Atorvastatin [Lipitor] 20 mg PO DAILY 07/16/23 [History] Empagliflozin/Metformin HCl [Synjardy Xr 10-1,000 mg Tablet] 1 tab PO DAILY 07/16/23 [History] Tirzepatide [Mounjaro] 7.5 mg SQ FR 07/16/23 [History] buPROPion XL [Wellbutrin XL] 300 mg PO DAILY 07/16/23 [History] Aspirin [Children's Aspirin] 81 mg PO DAILY 08/01/24 [History] Follow up Appointment(s)/Referral(s): Lita Felipe DO [STAFF PHYSICIAN] - As Needed Patient Instructions/Handouts: *Surgery [facility] - (Anesthesia) Discharge Instructions Outpatient Surgery, Vein Stripping (DC) Discharge Disposition: HOME SELF-CARE
== END 2024-08-03 15:28 | disposition home or self-care (01) ==
LOC: OR 10:58
PROVIDERS: ATTEND Surgery
DX: I83.812 Varicose veins of left lower extremity with pain (principal); E11.9 Type 2 diabetes mellitus without complications; E78.5 Hyperlipidemia, unspecified; Z86.718 Personal history of other venous thrombosis and embolism; I87.2 Venous insufficiency (chronic) (peripheral); Z87.891 Personal history of nicotine dependence; Z79.84 Long term (current) use of oral hypoglycemic drugs; Z79.82 Long term (current) use of aspirin
CPT/HCPCS: 37765; 80048; 85025; J2250; J1200; J1100; J2405; J2003 ×2; J3010; J2704